=== PATIENT | female | born 1990 | race Caucasian/White ===

== ENCOUNTER 2023-09-10 12:57 | Emergency (ER) | payer SELFPAY ==
[2023-09-10 13:04] VITALS: BP 130/82; PULSE 100; RESP 16; TEMP 37.1; O2SAT 98; BMI 38.8
--- NOTE | 2023-09-10 13:07 | XR_ITS ---
[address] [address] Patient Name: LAVELLE TO MRN: [id number] date: 1990 Sex: F Assigned Patient Location: ER Current Patient Location: ER Accession/Order Number: [id number] Exam Date: 09/10/2023 13:25 Report Date: 09/10/2023 13:41 At the request of: TOBY MONTEIRO Procedure: XR foot LT min 3V STUDY: XR foot LT min 3V, [id number] HISTORY: Atraumatic pain for 3 months, distal plantar COMPARISON: None FINDINGS: No acute fracture, dislocation, or suspicious osseous lesion. No significant degenerative changes. Visualized soft tissues are within normal limits. Bipartite medial first MTP joint sesamoid. XR/XR foot LT min 3V IMPRESSION: Negative exam. No osseous etiology for plantar foot pain demonstrated. Electronically authenticated by: LEISA WATSON Date: 09/10/2023 13:41
--- NOTE | 2023-09-10 13:09 | ED_ITS ---
HPI - Extremity Injury (Lower) General Chief Complaint: Extremity Injury, Lower Stated Complaint: LOWER EXTREMITY PAIN Time Seen by Provider: 09/10/23 13:05 Source: patient Mode of arrival: Wheelchair History of Present Illness HPI Narrative: 33-year-old female presents for pain to her left foot that she has had for 3 months. There is no trauma. She points to the plantar aspect of her foot at the base of the first and second toes to indicate the area of most pain. It is worse when she walks on it and she is on her feet a lot at work. No symptoms in the right foot. She has no history of injury to that foot such as a fracture in the remote past. Related Data Previous Rx's Medication Instructions Recorded etodolac 400 mg tablet 400 mg PO Q12H PRN pain #20 tabs 09/10/23 Allergies Allergy/AdvReac Type Severity Reaction Status Date / Time cefixime [From Suprax] Allergy Severe Verified 09/10/23 13:08 Review of Systems ROS Narrative A ten point review of systems is negative except as noted above. Exam Narrative Exam Narrative: Nurses note and vital signs reviewed and patient is not hypoxic. General: The patient appears well and in no apparent distress. Patient is resting comfortably on cart. Skin: Warm, dry, no pallor noted. There is no rash noted. Head: Normocephalic, atraumatic Eye: Normal conjunctiva, no drainage Ears, Nose, Mouth, and Throat: oral mucosa is moist. Nares patent. Cardiovascular: Regular Rate and Rhythm Respiratory: Patient is in no distress, no accessory muscle use Back: non-tender GI: Soft and nontender Musculoskeletal: The left foot is examined. There is no bruise or rash or visible swelling. She has tenderness on the plantar aspect of her foot distally particularly at just proximal to the first and second toes. No skin lesions are noted. The ankle is nontender. Neurological: A&O, normal speech Psychiatric: Cooperative Constitutional Vital Signs, click to edit/add: Last Vital Signs Temp 98.8 F 09/10/23 13:04 Pulse 100 H 09/10/23 13:04 Resp 16 09/10/23 13:04 BP 130/82 09/10/23 13:04 Pulse Ox 98 09/10/23 13:04 O2 Del Method Room Air 09/10/23 13:04 Course Vital Signs Vital signs: Vital Signs Temperature 98.8 F 09/10/23 13:04 Pulse Rate 100 H 09/10/23 13:04 Respiratory Rate 16 09/10/23 13:04 Blood Pressure 130/82 09/10/23 13:04 Pulse Oximetry 98 09/10/23 13:04 Oxygen Delivery Method Room Air 09/10/23 13:04 Temperature 98.8 F 09/10/23 13:04 Pulse Rate 100 H 09/10/23 13:04 Respiratory Rate 16 09/10/23 13:04 Blood Pressure 130/82 09/10/23 13:04 Pulse Oximetry 98 09/10/23 13:04 Oxygen Delivery Method Room Air 09/10/23 13:04 MDM - Extremity Injury (Lower) MDM Narrative Medical decision making narrative: X-ray is negative. She is referred to podiatry and prescribed anti- inflammatory. Treatment diagnosis and follow-up were discussed with the patient. Differential Diagnosis Differential diagnosis: Likely other (Stress fracture, neuroma, arthralgia) Imaging Data Foot x-ray: Radiologist's impression: ITS Impressions Foot X-Ray 09/10/23 13:07 IMPRESSION: Negative exam. No osseous etiology for plantar foot pain demonstrated. Electronically authenticated by: LEISA WATSON Date: 09/10/2023 13:41 Discharge Plan Discharge Chief Complaint: Extremity Injury, Lower Clinical Impression: Foot pain, left Patient Disposition: Home, Self-Care Time of Disposition Decision: 13:51 Condition: Good Mode of Transportation: Private Vehicle Prescriptions / Home Meds: New etodolac 400 mg tablet 400 mg PO Q12H PRN (Reason: pain) Qty: 20 0RF Instructions: Metatarsalgia (DC) Additional Instructions: Follow-up with Dr. Fisher. Stand Alone Forms: Portal Instructions Referrals: Physician,Non-Staff, MD [Primary Care Provider] - 1 week
== END 2023-09-10 14:00 | disposition home or self-care (01) ==
PROVIDERS: Emergency Provider Emergency Medicine
DX: M79.672 Pain in left foot (principal)
CPT/HCPCS: 73630; 99283

== ENCOUNTER 2023-11-06 11:56 | Emergency (ER) | payer SELFPAY ==
[2023-11-06 12:09] VITALS: BP 127/88; PULSE 87; TEMP 36.9; O2SAT 99; BMI 39.3
[2023-11-06 13:11] LABS: Bilirubin Urine NEGATIVE (NEGATIVE); Blood Urine SMALL (NEGATIVE); Clarity Urine CLEAR (CLEAR); Color Urine LT. YELLOW (YELLOW); Glucose Urine UA NEGATIVE (NEGATIVE); Ketones Urine NEGATIVE (NEGATIVE); Leukocyte Esterase Urine LARGE (NEGATIVE); Nitrite Urine NEGATIVE (NEGATIVE); Protein Urine TRACE mg/dL (NEG/TRACE)
[2023-11-06 13:15] LABS: Urine Microscopic Indicated YES
--- NOTE | 2023-11-06 13:17 | ED.ABDPAIN1 ---
HPI - Abdominal Pain General Chief Complaint: Abdominal Pain Stated Complaint: ABDOMINAL PAIN Time Seen by Provider: 11/06/23 13:09 Source: patient Mode of arrival: walk-in History of Present Illness HPI narrative: Patient is a 33-year-old female who presents to the emergency department for a 1 week history of pain to the right flank and right side. She denies urinary symptoms, diarrhea, vomiting. She has had nausea. She reports pain in the right upper quadrant and right flank. She has had no upper respiratory symptoms, she denies previous abdominal surgeries. She is not concerned for . She drove herself to the emergency department. No medications taken prior to arrival. Related Data Home Medications ?Medication ?Instructions ?Recorded ?Confirmed No Known Home Medications 11/06/23 11/06/23 Previous Rx's ?Medication ?Instructions ?Recorded hydrocodone 5 mg-acetaminophen 325 1 tab PO Q6H PRN pain 3 days #12 11/06/23 mg tablet tabs hyoscyamine sulfate 0.125 mg 0.125 mg PO Q6H PRN abdominal pain 11/06/23 tablet (Levsin) #12 tabs ketorolac 10 mg tablet 10 mg PO TID PRN pain #10 tabs 11/06/23 ondansetron 4 mg disintegrating 4 mg PO Q6H PRN nausea and 11/06/23 tablet vomiting #12 tabs sulfamethoxazole 800 1 tab PO BID 7 days #14 tabs 11/06/23 mg-trimethoprim 160 mg tablet (Bactrim DS) Allergies Allergy/AdvReac Type Severity Reaction Status Date / Time cefixime [From Suprax] Allergy Severe Verified 09/10/23 13:08 Review of Systems ROS Constitutional Denies: fever or chills Ears, nose, mouth, and throat Denies: throat pain or nasal congestion Cardiovascular Denies: chest pain Respiratory Denies: shortness of breath or cough Gastrointestinal Reports: abdominal pain and nausea; Denies: vomiting or diarrhea Genitourinary Denies: painful urination Musculoskeletal Reports: back pain; Denies: neck pain Integumentary/Breast Denies: rash Neurological Denies: headache Hematologic/Lymphatic Denies: easy bruising or easy bleeding Exam Narrative Exam Narrative: Gen.: Awake, alert, in no distress Head: Normocephalic, atraumatic ENT: Moist mucous membranes Respiratory: No respiratory distress, lungs clear bilaterally Cardio: Regular rate and rhythm Gastrointestinal: Abdomen is soft, nondistended and nontender to palpation; No CVA tenderness Extremities: Moves extremities equally Psych: Normal mood and affect Neuro: No focal neuro deficit Skin: Warm, dry, intact Constitutional Vital Signs, click to edit/add: Last Vital Signs Temp 98.5 F 11/06/23 12:09 Pulse 76 11/06/23 14:51 Resp 18 11/06/23 14:51 BP 107/67 11/06/23 14:51 Pulse Ox 98 11/06/23 14:51 O2 Del Method Room Air 11/06/23 12:09 Course Vital Signs Vital signs: Vital Signs Temperature 98.5 F 11/06/23 12:09 Pulse Rate 87 11/06/23 12:09 Respiratory Rate 18 11/06/23 12:09 Blood Pressure 127/88 11/06/23 12:09 Pulse Oximetry 99 11/06/23 12:09 Oxygen Delivery Method Room Air 11/06/23 12:09 Temperature 98.5 F 11/06/23 12:09 Pulse Rate 76 11/06/23 14:51 Respiratory Rate 18 11/06/23 14:51 Blood Pressure 107/67 11/06/23 14:51 Pulse Oximetry 98 11/06/23 14:51 Oxygen Delivery Method Room Air 11/06/23 12:09 MDM - Abdominal Pain MDM Narrative Medical decision making narrative: Show normal white blood cell count, normal bilirubin and normal LFTs. Patient With evidence of UTI on urine specimen. test is negative. Patient sent for CT showing cholelithiasis with no evidence of cholecystitis, supported also by her lab studies. No other acute abnormalities noted on CT. Patient will be treated for biliary colic, UTI for home. Follow-up with general surgery and return to the ER if symptoms change or worsen. Medical Records Attestation: I reviewed the patient's medical records. Lab Data Attestation: I reviewed the patient's lab results. Labs: Lab Results 11/06/23 11/06/23 Range/Units 12:14 13:24 WBC 9.0 (4.0-11.0) 10^3/uL RBC 3.88 L (4.20-5.40) 10^6/uL Hgb 12.0 (12.0-16.0) g/dL Hct 37.1 (36.0-48.0) % MCV 95.6 (81.0-99.0) fL MCH 30.9 (26.7-34.0) pg MCHC 32.3 (29.9-35.2) g/dL RDW 12.5 (11.0-15.0) % Plt Count 256 (150-450) 10^3/uL MPV 9.5 (9.5-13.5) fL Neut % (Auto) 63.9 (43.0-75.0) % Lymph % (Auto) 27.6 (20.5-60.0) % [place] % (Auto) 6.9 (1.7-12.0) % Eos % (Auto) 1.3 (0.9-7.0) % Baso % (Auto) 0.2 (0.2-2.0) % Neut # (Auto) 5.7 (1.4-6.5) 10^3/uL Lymph # (Auto) 2.5 (1.2-3.8) 10^3/uL [place] # (Auto) 0.6 (0.3-0.8) 10^3/uL Eos # (Auto) 0.1 (0.0-0.7) 10^3/uL Baso # (Auto) 0.0 (0.0-0.1) 10^3/uL Abs Immat Gran (auto) 0.01 (0.00-0.03) 10^3/uL Imm/Tot Granulo (auto) 0.1 (0.0-0.5) % Sodium 140 (136-145) mmol/L Potassium 3.8 (3.5-5.1) mmol/L Chloride 103 (98-107) mmol/L Carbon Dioxide 28.3 (21.0-32.0) mmol/L Anion Gap 12.5 BUN 7.0 (7.0-18.0) mg/dL Creatinine 0.84 (0.55-1.02) mg/dL Est GFR ( Amer) >60 (>=60) Est GFR (Non-Af Amer) >60 (>=60) BUN/Creatinine Ratio 8.3 Glucose 96 (74-106) mg/dL Lactate 0.6 (0.4-2.0) mmol/L Calcium 9.6 (8.5-10.1) mg/dL Total Bilirubin 0.4 (0.2-1.0) mg/dL AST 20 (15-37) U/L ALT 46 (14-59) U/L Alkaline Phosphatase 62 (46-116) U/L Total Protein 7.6 (6.4-8.2) g/dL Albumin 3.5 (3.4-5.0) g/dL Globulin 4.1 g/dL Albumin/Globulin Ratio 0.9 Lipase 23.0 (16.0-77.0) U/L Urine Color Lt. yellow (YELLOW) Urine Clarity Clear (CLEAR) Urine pH 7.0 (5.0-9.0) Ur Specific [place] 1.010 (1.005-1.025) Urine Protein Trace (NEG/TRACE) mg/dL Urine Glucose (UA) Negative (NEGATIVE) mg/dL Urine Ketones Negative (NEGATIVE) mg/dL Urine Occult Blood Small A (NEGATIVE) Urine Nitrite Negative (NEGATIVE) Urine Bilirubin Negative (NEGATIVE) Urine Urobilinogen 1.0 (0.2-1.0) EU/dL Ur Leukocyte Esterase Large A (NEGATIVE) Urine RBC 5-10 A (0-2) #/HPF Urine WBC 50-75 A (NONE SEEN) #/HPF Ur Squamous Epith Cells Few A (NONE/RARE) #/LPF Urine Crystals None seen (None Seen) #/HPF Urine Bacteria Small A (NONE SEEN) #/HPF Urine Casts None seen (NONE SEEN) #/LPF Urine Mucus None seen (NONE SEEN) Ur Culture Indicated? Yes Urine HCG, Qual Negative (NEGATIVE) Imaging Data CT scan - abdomen: Attestation: I have reviewed the pertinent imaging results. Radiologist's impression: ITS Impressions Abdomen/Pelvis CT 11/06/23 13:25 IMPRESSION: 1. Cholelithiasis. No CT evidence of acute cholecystitis. 2. No urinary tract calculi or obstructive uropathy. 3. Unremarkable bowel and appendix. No acute or specific findings to account for patient's symptoms. Electronically authenticated by: EFRAÍN PERALTA Date: 11/06/2023 15:11 Discharge Plan Discharge Stand Alone Forms: Portal Instructions Chief Complaint: Abdominal Pain Clinical Impression: UTI (urinary tract infection), Abdominal pain, Cholelithiasis Patient Disposition: Home, Self-Care Time of Disposition Decision: 15:20 Condition: Good Prescriptions / Home Meds: New hydrocodone-acetaminophen 5-325 mg tablet 1 tab PO Q6H PRN (Reason: pain) 3 Days Qty: 12 0RF Rx Instructions: DX: R10.9 sulfamethoxazole-trimethoprim [Bactrim DS] 800-160 mg tablet 1 tab PO BID 7 Days Qty: 14 0RF ketorolac 10 mg tablet 10 mg PO TID PRN (Reason: pain) Qty: 10 0RF hyoscyamine sulfate [Levsin] 0.125 mg tablet 0.125 mg PO Q6H PRN (Reason: abdominal pain) Qty: 12 0RF ondansetron 4 mg tablet,disintegrating 4 mg PO Q6H PRN (Reason: nausea and vomiting) Qty: 12 0RF No Action No Known Home Medications Print Language: Tunisian Instructions: Gallstones (ED), Urinary Tract Infection in Women (ED) Referrals: Rolando Bolanos MD [Physician] - 1 week Physician,Non-Staff, [Primary Care Provider] - 1 week
[2023-11-06 13:23] LABS: Bacteria Urine SMALL #/HPF (NONE SEEN); Cast Seen? NONE SEEN #/LPF (NONE SEEN); Crystals Seen? None Seen #/HPF (None Seen); Mucus Urine NONE SEEN (NONE SEEN); Squamous Epithelial Cell Urine FEW #/LPF (NONE/RARE); Urine Culture Indicated YES; WBC Urine 50-75 #/HPF (NONE SEEN)
--- NOTE | 2023-11-06 13:25 | CT_ITS ---
[address] [address] Patient Name: LAVELLE TO MRN: [id number] date: 1990 Sex: F Assigned Patient Location: ER Current Patient Location: ER Accession/Order Number: [id number] Exam Date: 11/06/2023 14:25 Report Date: 11/06/2023 15:11 At the request of: SANFORD GALLO Procedure: CT abdomen pelvis w con EXAMINATION: CT abdomen pelvis w con HISTORY: Right flank pain COMPARISON: No relevant comparison available. TECHNIQUE: Axial, Coronal, and Sagittal images were obtained without and/or with IV contrast as indicated by examination type. Dose reduction techniques were achieved by using automated exposure control and/or adjustment of mA and/or kV according to patient size and/or use of iterative reconstruction technique. FINDINGS: LUNG BASES: No visible pulmonary or pleural disease. LIVER: No enlargement, atrophy, suspicious density, or significant focal lesion. BILIARY: Several stones within noninflamed gallbladder up to 1.8 cm in size. No abnormal duct dilation. PANCREAS: No lesion, fluid collection, or abnormal duct dilatation. SPLEEN: No enlargement or focal lesion. ADRENALS: No mass or enlargement. KIDNEYS: No mass, obstruction, or calcification. BOWEL/MESENTERY: No visible mass, obstruction, or bowel wall thickening. Normal appendix. AORTA/VASCULAR: No aneurysm or dissection. RETROPERITONEUM: No mass or adenopathy. LYMPH NODES: No adenopathy. URINARY BLADDER: No visible focal wall thickening, lesion, or calculus. PELVIC ORGANS: No visible mass. Pelvic organs appropriate for patient age. Bilateral fallopian tube clips. ABDOMINAL WALL: No mass or hernia. BONES: No bony lesion or fracture. OTHER: Negative. CT/CT abdomen pelvis w con IMPRESSION: 1. Cholelithiasis. No CT evidence of acute cholecystitis. 2. No urinary tract calculi or obstructive uropathy. 3. Unremarkable bowel and appendix. No acute or specific findings to account for patient's symptoms. Electronically authenticated by: EFRAÍN PERALTA Date: 11/06/2023 15:11
[2023-11-06] MEDS: 0.9 % SODIUM CHLORIDE 1,000 ML 1000 ML IV (13:28)
[2023-11-06] MEDS: HYOSCYAMINE SULFATE 0.125 MG TAB.SUBL SL (13:29)
[2023-11-06] MEDS: KETOROLAC TROMETHAMINE 30 MG/ML VIAL IVP (13:29)
[2023-11-06] MEDS: ONDANSETRON PF 4 MG/2 ML VIAL IV (13:30)
[2023-11-06 13:37] LABS: Basophils Percent Auto 0.2 % (0.2-2.0); Eosinophils Absolute Auto 0.1 10^3/uL (0.0-0.7); Eosinophils Percent Auto 1.3 % (0.9-7.0); Hematocrit 37.1 % (36.0-48.0); Immature Granulocytes Abs Auto 0.01 10^3/uL (0.00-0.03); Immature Granulocytes Pct Auto 0.1 % (0.0-0.5); Lymphocytes Absolute Auto 2.5 10^3/uL (1.2-3.8); Lymphocytes Percent Auto 27.6 % (20.5-60.0); Mean Corpuscular HGB Conc 32.3 g/dL (29.9-35.2); Mean Corpuscular Hemoglobin 30.9 pg (26.7-34.0); Mean Corpuscular Volume 95.6 fL (81.0-99.0); Mean Platelet Volume 9.5 fL (9.5-13.5); Monocytes Absolute Auto 0.6 10^3/uL (0.3-0.8); Monocytes Percent Auto 6.9 % (1.7-12.0); Neutrophils Absolute Auto 5.7 10^3/uL (1.4-6.5); Neutrophils Percent Auto 63.9 % (43.0-75.0); Platelet Count 256 10^3/uL (150-450); Red Blood Count 3.88 10^6/uL (4.20-5.40); Red Cell Distribution Width 12.5 % (11.0-15.0)
[2023-11-06 13:48] LABS: Alanine Aminotransferase 46 U/L (14-59); Albumin Globulin Ratio 0.9; Albumin Level 3.5 g/dL (3.4-5.0); Alkaline Phosphatase 62 U/L (46-116); Anion Gap 12.5; Aspartate Amino Transferase 20 U/L (15-37); BUN Creatinine Ratio 8.3; Bilirubin Total 0.4 mg/dL (0.2-1.0); Calcium 9.6 mg/dL (8.5-10.1); Carbon Dioxide 28.3 mmol/L (21.0-32.0); Chloride 103 mmol/L (98-107); Estimated GFR (African America >60 (>=60); Estimated GFR (Non-African Ame >60 (>=60); Globulin 4.1 g/dL; Glucose 96 mg/dL (74-106); Potassium 3.8 mmol/L (3.5-5.1); Sodium 140 mmol/L (136-145); Total Protein 7.6 g/dL (6.4-8.2)
[2023-11-06 13:51] LABS: Lactate/Lactic Acid 0.6 mmol/L (0.4-2.0)
[2023-11-06 14:08] LABS: HCG Qualitative Urine* NEGATIVE (NEGATIVE)
[2023-11-06 14:16] VITALS: BP 126/77; PULSE 82; O2SAT 98
[2023-11-06 14:51] VITALS: BP 107/67; PULSE 76; O2SAT 98
--- NOTE | 2023-11-08 15:30 | PC.NURSE ---
11/08/23 pt urine c+s reviewed by dr castellon, order to stop Bactrim start Macrobid 100 mg po bid times 5 days. Pt called and notified, and called to [facility] in [place] per pt request. pt denies any further needs questions or concerns at this time. Marco A Harvey RN
== END 2023-11-06 15:31 | disposition home or self-care (01) ==
PROVIDERS: Physician Assistant; Emergency Provider Emergency Medicine Emergency Medical Services
DX: N39.0 Urinary tract infection, site not specified (principal); R10.9 Unspecified abdominal pain; K80.20 Calculus of gallbladder without cholecystitis without obstruction
CPT/HCPCS: 36415; 74177; 80053; 81001; 83605; 83690; 84703; 85025; 87086; 87150; 87186; 96374; 96375; 99285; Q9967

== ENCOUNTER 2024-07-18 10:36 | Observation (INO) | payer SELFPAY ==
[2024-07-18 10:42] VITALS: BP 136/93; PULSE 93; TEMP 36.9; O2SAT 100; BMI 42.9
--- OUTSIDE RECORDS SUMMARY | 2024-07-18 10:43 | XMS_ITS | CCD ---
Author Organization [facility] Care Team Providers Care [employer] Sales Consultant Name Role Phone GEMMA, RICHELLE Unavailable Unavailable GEMMA, RICHELLE Unavailable Unavailable UNKNOWN, PROVIDER Unavailable Unavailable GEMMA, RICHELLE Unavailable Unavailable PHYSICIAN, DEFAULT Admitting Unavailable PHYSICIAN, DEFAULT Attending Unavailable Unavailable Primary Care Provider UnavailFRANCOIS Ivan Attending Unavailable FRANCOIS KING E Attending Unavailable CHUCKIE ALVARENGA Attending Unavailable EDWARD HAN Referring Unavailable NO PCP, NO PCP Primary Care Unavailable EDWARD HAN Admitting Unavailable EDWARD HAN Attending Unavailable NO PCP, NO PCP Primary Care Unavailable CANDI ROSS Attending Unavailable NO PCP, NO PCP Primary Care Unavailable EDWARD HNA Attending Unavailable NO PCP, NO PCP Primary Care Unavailable NATALIO BARRERA Attending Unavailable NO PCP, NO PCP Primary Care Unavailable Allergies Allergy Classification Reported Allergen(s) Allergy Type Date of Onset Reaction(s) Facility Cephalosporins (antibiotic) (1 source) Cefixime Drug Allergy 5 Hives, Swelling [facility] (2 sources) Cefixime; Translations: [CEFIXIME] Drug Allergy 9 [facility] Medications Completed/Discontinued Medications Medication Drug Class(es) Dates Sig (Normalized) Sig (Original) cephalexin 500 mg oral capsule (2 sources) Cephalosporin Antibacterial Start: 11-11-2020 End: 11-21-2020 cephALEXin (KEFLEX) capsule 500 mg ferrous sulfate 325 mg oral tablet (1 source) End: 11-11-2020 take 1 tablet by mouth once daily at breakfast ferrous sulfate 325 (65 Fe) MG tablet Take 325 mg by mouth daily (with breakfast) 0 11/11/2020 Discontinued (LIST CLEANUP) ibuprofen 800 mg oral tablet (1 source) Nonsteroidal Anti-inflammatory Drug Start: 11-11-2020 End: 11-11-2020 ibuprofen (ADVIL;MOTRIN) tablet 800 mg Vit-Fe Fumarate-FA ( VITAMIN PO) (1 source) End: 11-11-2020 take 1 tablet by mouth once daily Vit-Fe Fumarate-FA ( VITAMIN PO) Take 1 tablet by mouth daily 0 11/11/2020 Discontinued (LIST CLEANUP) sulfamethoxazole 800 mg / trimethoprim 160 mg oral tablet (2 sources) Dihydrofolate Reductase Inhibitor Antibacterial, Sulfonamide Antimicrobial Start: 11-11-2020 End: 11-11-2020 sulfamethoxazole- trimethoprim (BACTRIM DS;SEPTRA DS) 800-160 MG per tablet 1 tablet Start: 11-11-2020 End: 11-21-2020 take 1 tablet by mouth twice daily sulfamethoxazole-trimethoprim (BACTRIM D S) 800-160 MG per tablet Take 1 tablet by mouth 2 times daily for 10 days 20 tablet 0 11/11/2020 11/21/2020 Active Problems Active Problems Problem Classification Problem Date Documented Date Episodic/Chronic Biliary tract disease (3 sources) Calculus of gallbladder with chronic cholecystitis without obstruction; Translations: [Calculus of bile duct with chronic cholecystitis without obstruction] Onset: 11-19-2023 Episodic Other nutritional; endocrine; and metabolic disorders (1 source) Obesity, unspecified; Translations: [Obesity, unspecified] Onset: 11-19-2023 Chronic Other and delivery including normal (1 source) Delivery normal; Translations: [Encounter for full-term uncomplicated delivery] 03-15-2016 Episodic Residual codes; unclassified (1 source) Acquired absence of other specified parts of digestive tract; Translations: [Acquired absence of other specified parts of digestive tract] Onset: 12-16-2023 Episodic Residual codes; unclassified (1 source) Tobacco use; Translations: [Tobacco use] Onset: 11-19-2023 Episodic Skin and subcutaneous tissue infections (2 sources) Cellulitis and abscess of lower limb; Translations: [Cellulitis of unspecified part of limb] Episodic Unclassified (1 source) cholelithiasis, chronic cholecystitis Onset: 12-02-2023 Unclassified (1 source) POST-OP VISIT Onset: 12-16-2023 Unclassified (1 source) Cholelithiasis Onset: 11-19-2023 Past or Other Problems Problem Classification Problem Date Documented Da te Episodic/Chronic Abdominal pain (1 source) Abdominal pain; Translations: [Unspecified abdominal pain] Onset: 11-03-2018 11-05-2018 Episodic Polyhydramnios and other problems of amniotic cavity (1 source) Newton rupture of membranes onset of labor within 24 hours; Translations: [Full-term premature rupture of membranes, onset of labor within 24 hours of rupture] Onset: 11-18-2018 11-18-2018 Episodic Results Test Name Value Interpretation Reference Range Facility Surgical Pathologyon 024 Surgical Pathology Normal [facility] Comment on above: Result Comment: [facility] [address] [place] [address] Surgical Pathology Consultation Patient Name:SUN TO:1990 (Age: 33)Gender:FTaken:4Reported:4Physician(s):Edward Han D.O. ([phone])Copy To: Rec. #:[id number]: #[id number] Final Pathologic Diagnosis Gallbladder, cholecystectomy: Chronic cholecystitis and cholelithiasis. Report Electronically Signed Out cjb/4Cdavid Edouard MD Interpretation performed at [facility], [address] [place] [address], License number: [id number]. Clinical History Cholelithiasis, chronic cholecystitis. Gross Description Received in formalin labeled GARY TO is an intact gallbladder, 8.1 x 3.5 x 2.2 cm. The cystic duct is marked with a clamp, which is removed and the resection margin is shaved. The serosa is green-blair smooth and glistening and the opposing hepatic bed is green-blair roughened and cauterized. The gallbladder is opened to reveal abundant viscous green bile and 2 semifriable yellow multifaceted calculi, 1.6 and 1.7 cm in greatest dimension. The gallbladder mucosa is green and velvety with abundant yellow streaking. Rrts sections are submitted in a single cassette to include the shaved cystic duct, a arborist representative section of the gallbladder neck body and fundus. (1,ss,[id number], m6) TB tgb/4AO Specimen(s) Received Gallbladder Fee Codes(s): 1; 45728 [id number] 06-24-2021 SARS-CoV-2 (COVID-19) RNA TINO+probe Ql (Unsp spec) [facility] Comment on above: Result Comment: Rapid NAAT: The specimen is POSITIVE for SARS-Cov-2, the novel coronavirus associated with COVID-19. This test has been authorized by the FDA under an Emergency Use Authorization (EUA) for use by authorized laboratories. The ID NOW COVID-19 assay is designed to detect the virus that causes COVID-19 in patients with signs and symptoms of infection who are suspected of COVID-19. An individual without symptoms of COVID-19 and who is not shedding SARS-CoV-2 virus would expect to have a negative (not detected) result in this assay. Fact sheet for Healthcare Providers: https://www.fda.gov/media/486941/download Fact sheet for Patients: https://www.fda.gov/media/092619/download Methodology: Isothermal Nucleic Acid Amplification Results reported to the appropriate Health Department Performed By: #### C OVRB #### [facility] [address] [place] [address] [place] [address] Hydro Pneumatic Tester: Rey Clark MD SURGICALon 03-02-2021 SURGICAL [facility] [id number] Assoc. Page 1 of 1 [address] [place] [address] PROC: 03/02/2021 [facility] RECV: 03/06/[address] RPTD: 03/07/2021 [place] [address] LOC: [facility] ACCT: [id number] SEX: F : 1990 AGE: 30 Y PATHOLOGY REPORT ATTN: JUAN SLOAN REQ: JUAN SLOAN Clinical Information: AUB FINAL DIAGNOSIS: Endometrium, curettings: Benign interval phase endometrium. Benign endocervix and transition zone. Specimen: ENDOMETRIAL CURETTINGS Gross Examination: The container is labeled Sun To, endometrial curettings. Received in formalin are bits of green tissue aggregating to 1.4 x 1 x 0.2 cm. 1 ns. SIO/DKR:[id number] Microscopic Examination: Sections show numerous fragments of benign endometrium containing interval phase glands. There is no evidence of hyperplasia, atypia, or malignancy. Also present are multiple fragments of benign transition zone with squamous metaplasia. [id number] OSMAN DUENAS M.D., F.C.A.P [facility]/ [facility] Printed on: 03/07/2021 [address] [place], [place] [address] Original print date: 03/07/2021 Normal [facility] NOVEL CORONAVIRUS NASOPHARYN GEAL - [facility] SPECIMEN ONLYon 02-27-2021 SARS-CoV-2 (COVID-19) RNA TINO+probe Ql (Unsp spec) Not detected Normal NOT DETECTED [facility] Comment on above: Order Comment: This test was performed using real time PCR for the qualitative detection of SARS-CoV-2 nucleic acid. The test has been reviewed by the FDA and given emergency use authorization. This test was developed and its performance characteristics determined by The Clinical Microbiology Laboratory at [facility]. This test is used for clinical purposes. It should not be regarded as investigational or for research. Result Comment: [facility] Negative results do not preclude SARS-CoV-2 infection and should not be used as the sole basis for treatment or other patient management decisions. Optimum specimen types and timing for peak viral levels during infections caused by SARS-CoV-2 has not been determined. The possibility of a false negative result should especially be considered if the patient's recent exposures or clinical presentation suggest that SARS-CoV-2 infection is probable, and diagnostic tests for other causes of illness (e.g., other respiratory illness) are negative. Collection of a new specimen and re-testing may be necessary if the patient is critically ill or clinically deteriorating. Performed By: #### L [id number] #### U [facility] (DEFAULT) [address] [place] [address] CT BRAIN WOon 09-20-[address] BRAIN WITHOUT CONTRAST, 09/20/2019 6:39 AM EST INDICATION: Headache. COMPARISON: 12/19/2016. TECHNIQUE: CT images of the brain from skull base to vertex, including portions of the face and sinuses, were obtained without contrast. Supplemental 2D reformatted images were generated and reviewed as needed. Dose reduction techniques were achieved by using automated exposure control and/or adjustment of mA and/or kV according to patient size and/or use of iterative reconstruction technique. ADDITIONAL TECHNIQUE: None. FINDINGS: CALVARIUM/SKULL BASE: No evidence of fracture or destructive lesion. Mastoids and middle ears grossly clear. PARANASAL SINUSES: Imaged portions clear. BRAIN: No evidence of acute abnormality. No significant white matter disease or acute ischemia. No mass effect, mass lesion, acute hemorrhage, or hydrocephalus. IMPRESSION: 1. No CT evidence of acute intracranial abnormality. 2. Although no evidence of acute infarction, mass, or hemorrhage is seen, CT is relatively insensitive for the detection of hypoxia/ischemia within the first 24-48 hours, and an MRI scan may be indicated. Report electronically signed by: Dr. Dimitry Maldonado Normal [facility] UA w reflex C&Son 02-22-2019 Reflex Culture? URINE CULTURE NOT INDICATED Normal [facility] Comment on above: Performed By: #### U A w reflex C&S #### [facility] [address] [place] [address] Crystals LM Nom (Urine sed) NONE SEEN Normal NONE SEEN [facility] Comment on above: Performed By: #### U A w reflex C&S #### [facility] [address] [place] [address] Bacteria LM.HPF (Urine sed) [#/Area] Negative Normal NEGATIVE [facility] Comment on above: Performed By: #### U A w reflex C&S #### [facility] [address] [place] [address] Mucus Ql (Urine sed) Negative Normal NEGATIVE [facility] Comment on above: Performed By: #### U A w reflex C&S #### [facility] [address] [place] [address] Casts LM.LPF (Urine sed) [#/Area] NONE SEEN Normal NONE SEEN [facility] Comment on above: Performed By: #### U A w reflex C&S #### [facility] [address] [place] [address] Epithelial cells LM.HPF (Urine sed) [#/Area] FEW Normal NEGATIVE [facility] Comment on above: Performed By: #### U A w reflex C&S #### [facility] [address] [place] [address] RBC (Bld) [#/Vol] NONE SEEN Normal NONE SEEN [facility] Comment on above: Performed By: #### U A w reflex C&S #### [facility] [address] [place] [address] WBC (Bld) [#/Vol] NONE SEEN Normal NONE SEEN [facility] Comment on above: Performed By: #### U A w reflex C&S #### [facility] [address] [place] [address] Leukocyte esterase Test strip Ql (U) Negative Normal NEGATIVE [facility] Comment on above: Performed By: #### U A w reflex C&S #### [facility] [address] [place] [address] Nitrite Ql (U) Negative Normal NEGATIVE [facility] Comment on above: Performed By: #### U A w reflex C&S #### [facility] [address] [place] [address] Urobilinogen, Dipstick 0.2 Normal 0.2 - 1.0 [facility] Comment on above: Performed By: #### U A w reflex C&S #### [facility] [address] [place] [address] Protein, Qual Negative Normal NEGATIVE [facility] Comment on above: Performed By: #### U A w reflex C&S #### [facility] [address] [place] [address] pH (U) 6.5 [pH] Normal 5.0 - 9.0 [facility] Comment on above: Performed By: #### U A w reflex C&S #### [address] [address] Blood, Dipstick Negative Normal NEGATIVE [facility] Comment on above: Performed By: #### U A w reflex C&S #### [address] [address] Specific gravity (U) [Rel density] 1.010 Normal 1.005 - 1.030 [facility] Comment on above: Performed By: #### U A w reflex C&S #### [address] [address] Ketone, Dipstick Negative Normal NEGATIVE [facility] Comment on above: Performed By: #### U A w reflex C&S #### [address] [address] Bilirubin, Dipstick Negative Normal NEGATIVE [facility] Comment on above: Performed By: #### U A w reflex C&S #### [address] [address] Glucose, Dipstick Negative Normal NEGATIVE [facility] Comment on above: Performed By: #### U A w reflex C&S #### [address] [address] Character (U) CLEAR Normal CLEAR [facility] Comment on above: Performed By: #### U A w reflex C&S #### [address] [place] [address] Color (U) YELLOW Normal [facility] Comment on above: Performed By: #### U A w reflex C&S #### [facility] [address] [place] [address] Age at specimen collection = Normal [facility] Comment on above: Performed By: #### U A w reflex C&S #### [facility] [address] [place] [address] XR ABD AP/ERECT W PA CHESTon 02-22-2019 XR ABD AP/ERECT W PA CHEST ACUTE ABDOMINAL SERIES, 6 VIEWS: COMPARISON: 02/11/2019. HISTORY: Left-sided pain. FINDINGS: Retained stool suggests constipation. Otherwise, the bowel gas pattern appears within normal limits. There are no suspicious appearing calcifications. No free peritoneal air is seen. Tubal ligation clips are seen in the pelvis bilaterally. Otherwise, the osseous and surrounding soft tissue structures appear within normal limits. A single PA film of the chest appears within normal limits. IMPRESSION: 1. Moderate constipation. 2. Otherwise unremarkable abdomen. Report electronically signed by: Dr. Rey Barton [facility] CBC W Auto Differentialon Abs Neut # 8.0 10 X 3/mm High 1.8 - 7.7 [facility] Comment on above: Performed By: #### C BC Auto Diff #### [facility] [address] [place] [address] Basophils/100 WBC (Bld) 0 % Normal 0 - 1 [facility] Comment on above: Performed By: #### C BC Auto Diff #### [facility] [address] [place] [address] Eosinophils (Bld) [#/Vol] 0.3 10 X 3/mm Normal 0.0 - 0.5 [facility] Comment on above: Performed By: #### C BC Auto Diff #### [facility] [address] [place] [address] Eosinophils/100 WBC (Bld) 3 % Normal 0 - 5 [facility] Comment on above: Performed By: #### C BC Auto Diff #### [address] [place] [address] Erythrocyte distribution width (RBC) [Ratio] 14.3 % Normal 11.5 - 14.5 [facility] Comment on above: Performed By: #### C BC Auto Diff #### [address] [place] [address] Hematocrit (Bld) [Volume fraction] 34.6 % Low 36.0 - 47.0 [facility] Comment on above: Performed By: #### C BC Auto Diff #### [address] [address] Hemoglobin (Bld) [Mass/Vol] 11.2 g/dL Low 12.0 - 16.0 [facility] Comment on above: Performed By: #### C BC Auto Diff #### [address] [place] [address] Lymphocytes (Bld) [#/Vol] 3.6 10 X 3/mm Normal 1.0 - 4.0 [facility] Comment on above: Performed By: #### C BC Auto Diff #### [address] [place] [address] Lymphocytes/100 WBC (Bld) 29 % Normal 20 - 40 [facility] Comment on above: Performed By: #### C BC Auto Diff #### [address] [place] [address] MCH (RBC) [Entitic mass] 28.1 pg Normal 27.0 - 35.0 [facility] Comment on above: Performed By: #### C BC Auto Diff #### [address] [place] [address] MCHC (RBC) [Mass/Vol] 32.4 g/dL Normal 32.0 - 36.0 [facility] Comment on above: Performed By: #### C BC Auto Diff #### [address] [address] MCV (RBC) [Entitic vol] 86.6 fL Normal 80.0 - 100.0 [facility] Comment on above: Performed By: #### C BC Auto Diff #### [address] [address] Monocytes/100 WBC (Bld) 5 % Normal 1 - 15 [facility] Comment on above: Performed By: #### C BC Auto Diff #### [address] [address] Neutrophils/100 WBC (Bld) 63 % Normal 50 - 70 [facility] Comment on above: Performed By: #### C BC Auto Diff #### [address] [address] Platelet mean volume (Bld) [Entitic vol] 7.6 fL Normal 7.5 - 11.5 [facility] Comment on above: Performed By: #### C BC Auto Diff #### [address] [address] Platelets (Bld) [#/Vol] 358 uLx10 Normal 150 - 450 [facility] Comment on above: Performed By: #### C BC Auto Diff #### [address] [address] RBC (Bld) [#/Vol] 4.00 10 X 6/mm Low 4.20 - 5.40 [facility] Comment on above: Performed By: #### C BC Auto Diff #### [address] [place] [address] WBC (Bld) [#/Vol] 12.6 10 X 3/mm High 3.7 - 11.0 [facility] Comment on above: Performed By: #### C BC Auto Diff #### [address] [place], [place] [address] SURGICALon 02-17-2019 SURGICAL [facility] [id number] Assoc. Page 1 of 1 [address] [place] [address] PROC: 02/17/[address] [facility] RECV: 02/18/[address] RPTD: 02/19/2019 [place] [address] LOC: [facility] ACCT: SEX: F [id number] AGE: 28 Y : 1990 PATHOLOGY REPORT ATTN: REQ: JUANDUY SLOAN Clinical Information: MULTIPARITY, DESIRES NEXPLANON REMOVAL, DESIRES VOLUNTARY STERILIZATION FINAL DIAGNOSIS: Foreign body, removal: Gross description only. Specimen: FOREIGN BODY, UPPER ARM Gross Examination: The container is labeled Sun To, intradermal contraception device. Received in formalin is a white synthetic tubular structure measuring 4.2 cm in length x about 2 cm in diameter. No soft tissue. The specimen is for gross description only. EKM/DKR:[id number] DAWSON JESUS M.D., F.C.A.P. [facility]/ [facility] Printed on: 02/19/[address] [place] [id number] Original print date: 02/19/2019 [facility] hCG, Qualitative-Serumon Age at specimen collection = Normal [facility] Comment on above: Performed By: #### H CG,QUAL SERUM #### [address] [place] [address] Performed By: #### C BC Auto Diff #### [address] [place] [address] hCG, Qualitative-Serum Negative Normal NEGATIVE [facility] Comment on above: Performed By: #### H CG,QUAL SERUM #### [facility] [address] [place] [address] Internal Control ACCEPTABLE Normal [facility] Comment on above: Performed By: #### H CG,QUAL SERUM #### [facility] [address] [place] [address] Streptococcus Group A Cultur e-Pharyngeal Swabon 02-13-2019 Streptococcus Group A Culture-Pharyngeal Swab Negative Normal NEGATIVE [facility] Comment on above: Result Comment: A po sitive result indicates the specimen is presumptively positive for Group A Beta Strep by bacitracin method. Performed By: #### S TRP SCR, GRP A #### [address] [place] [address] Group A Strepon 02-11-2019 Internal Control ACCEPTABLE Normal [facility] Comment on above: Performed By: #### R APID STREP SCR #### [address] [address] S. pyogenes Ag IA Ql (Unsp spec) Negative Normal NEGATIVE [facility] Comment on above: Performed By: #### R APID STREP SCR #### [address] [address] XR CHEST P/L (2 view)on 01-25 XR CHEST P/L (2 view) PROCEDURE: XR CHEST P/L (2 VIEW) REASON FOR STUDY/CLINICAL HISTORY: Cough. COMPARISON STUDY: None available at time of dictation. TECHNIQUE: Frontal and lateral view(s) of the chest presented for interpretation. FINDINGS: Bronchial thickening centrally. There is atelectasis at the right medial lung base. Left base and lingular atelectatic changes are also suggested. Normal cardiomediastinal silhouette. No focal consolidation, edema, or effusion.No pneumothorax. No acute appearing focal significant bony abnormality. IMPRESSION: Bibasilar and lingular atelectasis and mild central bronchial thickening with no other acute process. Report electronically signed by: Dr. Deion Sigala [facility] Streptococcus Group A Cultur e-Pharyngeal Swabon 02-10-2019 Age at specimen collection = Normal [facility] Comment on above: Performed By: #### S TRP SCR, GRP A #### [facility] [address] [place] [address] Performed By: #### R APID STREP SCR #### [facility] [address] [place] [address] RAPID FLUon 11-01-2018 Flu B Negative Normal NEGATIVE [facility] Comment on above: Result Comment: A po sitive result indicates the presence of Influenza A/B antigen. A negative result should be interpreted as presumptively negative for the presence of Influenza A/B antigen. Performed By: #### F IRIS A/B MOLECUL #### [facility] [address] [place] [address] Internal Control ACCEPTABLE Normal [facility] Comment on above: Performed By: #### F IRIS A/B MOLECUL #### [facility] [address] [place] [address] Flu A Negative Normal NEGATIVE [facility] Comment on above: Performed By: #### F IRIS A/B MOLECUL #### [facility] [address] [place] [address] Age at specimen collection = Normal [facility] Comment on above: Performed By: #### F IRIS A/B MOLECUL #### [address] [place] [address] Vital Signs Date Time Vital Sign Value Performing Clinician Russ quiroz 11-11-2020 21:27-0400 Diastolic blood pressure 67 mm[Hg] Chuckie Alvarenga MD Work Phone: [employer] Phone: 11-11-2020 21:27-0400 Heart rate 91 /min Chuckie Alvarenga MD Work Phone: [employer] Work Phone: 11-11-2020 21:27-0400 Respiratory rate 16 /min Chuckie Alvarenga MD Work Phone: [employer] Work Phone: 11-11-2020 21:27-0400 SaO2% (BldA) [Mass fraction] 98 % Chuckie Alvarenga MD Work Phone: [employer] Work Phone: 11-11-2020 21:27-0400 Systolic blood pressure 129 mm[Hg] Chuckie Alvarenga MD Work Phone: [employer] Work Phone: 11-11-2020 20:38-0400 Body mass index (BMI) [Ratio] 38.11 kg/m2 Chuckie Alvarenga MD Work Phone: [employer] Work Phone: 11-11-2020 20:38-0400 Body temperature 99.39 [degF] Chuckie Alvarenga MD Work Phone: [employer] Work Phone: 11-11-2020 20:38-0400 Body weight 103.87 kg Chuckie Alvarenga MD Work Phone: [employer] Work Phone: Encounters Encounter Date Encounter Type Care Provider Facility Start: 12-16-2023 End: 12-16-2023 ambulatory NATALIO BARRERA [facility] Start: 12-02-2023 End: 12-02-2023 Evaluation and management of inpatient CANDI ROSS [facility] Start: 12-02-2023 End: 12-02-2023 Evaluation and management of inpatient EDWARD YOCASTAJEFFERYMarco A [facility] Start: 11-27-2023 End: 11-27-2023 ambulatory [facility] Start: 11-19-2023 End: 11-19-2023 ambulatory VOTAW Mike [facility] Start: 08-07-2021 End: 08-07-2021 Emergency department patient [facility] Start: 06-24-2021 End: 06-24-2021 Emergency department patient visit FRANCOIS Vaz [facility] Start: 11-11-2020 End: 11-11-2020 [facility] [facility] Start: 11-11-2020 End: 11-11-2020 Emergency department patient visit Chuckie Alvarenga MD Work Phone: [facility] ED Comment on above: Cellulitis and absce ss of leg (Primary Dx); Cellulitis, abdominal wall Start: 11-25-2018 End: 11-26-2018 Patient encounter procedure DEFAULT PHYSICIAN Facility:[facility] Start: 02-11-2017 End: 02-12-2017 Ambulatory [facility] [place] Plan of Treatment Date Care Activity Detail Author Start: 03-15-2026 DTaP/Tdap/Td vaccine (2 - Td) DTaP/Tdap/Td vaccine (2 - Td) [employer] Phone: Start: 03-28-2021 Influenza vaccination Flu vacc ine (Season Ended) [employer] Phone: Start: 2013 Screening for malign ant neoplasm of cervix Cervical cancer screen [employer] Phone: Start: 2008 COVID-19 Vaccine (1) COVID-19 Vaccin e (1) [employer] Phone: Start: 2007 HIV screening HIV screen [facility] Work Phone: Start: 1998 Pneumococcal 0-64 ye ars Vaccine (1 of 1 - PPSV23) Pneumococcal 0-64 years Vaccine (1 of 1 - PPSV23) [employer] Phone: Start: 1993 Varicella vaccine (1 of 2 - 2-dose childhood series) Varicella vaccine (1 of 2 - 2-dose childhood series) [employer] Work Phone: Start: 1992 Hepatitis C screening Hepatitis C sc lindseyn [employer] Work Phone: Immunizations Immunization Date Immunization Notes Care Provider Fa rita 03-15-2016 tetanus toxoid, redu rodri diphtheria toxoid, and acellular pertussis vaccine, adsorbed Chuckie Jordan CALDERON Work Phone: [employer] Phone: Payers Date Payer Category Payer Unknown [id number] 1990 Unknown [id number] [id number] 1990 Unknown [id number] [id number] 1992 Unknown [id number] 2.16.8 [id number] 1992 Unknown [id number] [id number] [id number] 1992 Unknown [id number] 2.16.8 [id number] 1992 Unknown [id number] [id number] [id number] Medicaid [id number] Unknown Social History Date Type Detail Facility Start: 11-11-2020 Tobacco smoking stat 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 Please follow up with your primary care physician by calling today, or as soon as possible, for the first available appointment. If you do not have a primary care physician, please contact a physician or clinic listed below today to establish care. Please return to the emergency department IMMEDIATELY if you develop uncontrolled fevers, uncontrolled vomiting, change in symptoms, worsening of symptoms, or ANY other concerns. The following attachments cannot be sent through Care Everywhere.Cellulitis (Polish)Abscess: Skin (Polish)documented in this encounter [employer] Phone: Evaluation note Note Date & Type Note Facility Evaluation note Diagnosis Cellulitis and abscess of leg- Primary Cellulitis and abscess of leg, except foot Cellulitis, abdominal wall Cellulitis and abscess of trunk documented in this encounter [employer] Phone: Summary Purpose Family History No Family History Records FoundNo Family History Records FoundNo Family History Records FoundNo Family History Records FoundNo Family History Records FoundNo Family History Records FoundNo Family History Records FoundNo Family History Records FoundNo Family History Records Found Advance Directives No Advanced Directives Records FoundDocuments on File Type Date Recorded Patient Rrts Expl anation 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 Latest Code Status on File Code Status Date Activated Date Inactivated Comments Full Code 11/18/2018 4:11 AM 11/18/2018 7:55 AM Full Code 03/13/2016 11:53 PM 03/15/2016 4:20 PM Full Code 03/13/2016 9:44 AM 03/13/2016 11:53 PM Additional Source Comments INFORMATION SOURCE (unrecogn ized section and content) DATE CREATED AUTHOR 01/20/2018 [facility] DATE CREATED AUTHOR AUTHOR'S ORGANIZ ATION 12/02/2018 [facility] DATE CREATED AUTHOR AUTHOR'S ORGANIZ ATION 02/19/2019 [facility] DATE CREATED AUTHOR AUTHOR'S ORGANIZ ATION 10/08/2019 [facility] DATE CREATED AUTHOR AUTHOR'S ORGANIZ ATION 03/02/2021 [facility] DATE CREATED AUTHOR AUTHOR'S ORGANIZ ATION 03/08/2021 [facility] DATE CREATED AUTHOR AUTHOR'S ORGANIZ ATION 08/08/2021 Doris Rangel [facility] DATE CREATED AUTHOR AUTHOR'S ORGANIZ ATION 12/11/2023 [facility] DATE CREATED AUTHOR AUTHOR'S ORGANIZ ATION 12/19/2023 [facility] Reason for Visit (unrecogniz ed section and content) Reason Comments Leg Pain boil on left inner l eg Ordered Prescriptions (unrec ognized section and content) Prescription Sig Dispensed Refills Start Date End Da te sulfamethoxazole-trimeth oprim (BACTRIM DS) 800-160 MG per tablet Take 1 tablet by mouth 2 times daily for 10 days 20 tablet 0 11/11/2020 11/21/2020 cephALEXin (KEFLEX) 500 MG capsule Take 1 capsule by mouth 4 times daily for 10 days 40 capsule 0 11/11/2020 11/21/2020 FOR RECORDS PERTAINING TO PATIENTS WHO ARE OR HAVE BEEN ENROLLED IN A CHEMICAL DEPENDENCY/SUBSTANCEABUSE PROGRAM, SOME INFORMATION MAY BE OMITTED. This clinical summary was aggregated from multiple sources. Caution should be exercised in using it in the provision of clinical care. This summary normalizes information from multiple sources, and as a consequence, information in this document may materially change the coding, format and clinical context of patient data. In addition, data may be omitted in some cases. CLINICAL DECISIONS SHOULD BE BASED ON THE PRIMARY CLINICAL RECORDS. [employer] [facility]. provides no warranty or guarantee of the accuracy or completeness of information in this document.
--- NOTE | 2024-07-18 11:15 | ED_ITS ---
HPI - Ear Problem General Chief complaint: Ear Stated complaint: L EAR PAIN Time Seen by Provider: 07/18/24 10:55 Source: patient Mode of arrival: walk-in Limitations: no limitations History of Present Illness HPI Narrative: The patient presented to us with a significant ear pain on the left side she already was seen in the outpatient treated with Augmentin for the last at least 6 days with no improvement, she mentioned in the stress that she is not able to sleep and the pain is getting worse the pain is extending down to posterior aspect of her left ear in addition she is not able to hear with the left ear The patient denies any dental problems she denies any difficulty breathing or any other concerns at the moment Related Data Home Medications ?Medication ?Instructions ?Recorded ?Confirmed amoxicillin 875 mg-potassium 1 tab PO Q12H 07/18/24 07/18/24 clavulanate 125 mg tablet ibuprofen 800 mg tablet 800 mg PO Q8H PRN pain 07/18/24 07/18/24 Previous Rx's ?Medication ?Instructions ?Recorded hydrocodone 5 mg-acetaminophen 325 1 tab PO Q6H PRN pain 3 days #12 11/06/23 mg tablet tabs hyoscyamine sulfate 0.125 mg 0.125 mg PO Q6H PRN abdominal pain 11/06/23 tablet (Levsin) #12 tabs ketorolac 10 mg tablet 10 mg PO TID PRN pain #10 tabs 11/06/23 ondansetron 4 mg disintegrating 4 mg PO Q6H PRN nausea and 11/06/23 tablet vomiting #12 tabs sulfamethoxazole 800 1 tab PO BID 7 days #14 tabs 11/06/23 mg-trimethoprim 160 mg tablet (Bactrim DS) Allergies Allergy/AdvReac Type Severity Reaction Status Date / Time cefixime (From Suprax) Allergy Severe Verified 09/10/23 13:08 Review of Systems ROS Status of ROS 10 or more systems reviewed and unremark able except as noted in history and below PFSH PFSH Social History Little interest or pleasure in doing things: not at all Feeling down, depressed, or hopeless: not at all Exam Narrative Exam Narrative: Nurses notes and vital signs reviewed and patient is not hypoxic. General: Well-appearing and in no apparent distress. Skin: Warm, dry, no pallor noted. No rash. Head: Normocephalic, atraumatic. Neck: Supple, non-tender. Eye: Pupils are equal, round and EOMI. No scleral icterus. Ears, Nose, Mouth, and Throat: TM are clear, no nasal mucosal hypertrophy. Patient have a significant external auditory canal erythema and the patient have a swelling as well as the tympanic membrane I could not visualize, patient have significant tenderness anterior to the left auricle and she also had mastoid bone tenderness although there is no redness, on dental exam there was no finding that cannot explain the patient pain Cardiovascular: Regular Rate and Rhythm without murmur, gallop or rub. Respiratory: No accessory muscle use or respiratory distress. Lungs are clear to auscultation, no wheezing, rales or rhonchi Chest Wall: no tenderness Back: No midline thoracic or lumbar vertebral tenderness. No CVA tenderness Musculoskeletal: normal ROM, no calf or popliteal tenderness, no lower extremity edema/swelling GI: Abdomen is soft, non-distended. Normal bowel sounds. No masses appreciated. No tenderness to palpation. No rebound, guarding, or rigidity noted. Neurological: A&O x4. No cranial nerve dysfunction observed. No truncal ataxia. Moves all extremities. Sensation intact. Psychiatric: Cooperative and interactive. Normal mood and affect. Constitutional Vital Signs, click to edit/add: Last Vital Signs Temp 98.4 F 07/18/24 10:42 Pulse 93 H 07/18/24 10:42 Resp 18 07/18/24 10:42 BP 136/93 H 07/18/24 10:42 Pulse Ox 100 07/18/24 10:42 O2 Del Method Room Air 07/18/24 10:42 Course Vital Signs Vital signs: Vital Signs Temperature 98.4 F 07/18/24 10:42 Pulse Rate 93 H 07/18/24 10:42 Respiratory Rate 18 07/18/24 10:42 Blood Pressure 136/93 H 07/18/24 10:42 Pulse Oximetry 100 07/18/24 10:42 Oxygen Delivery Method Room Air 07/18/24 10:42 Temperature 98.4 F 07/18/24 10:42 Pulse Rate 93 H 07/18/24 10:42 Respiratory Rate 18 07/18/24 10:42 Blood Pressure 136/93 H 07/18/24 10:42 Pulse Oximetry 100 07/18/24 10:42 Oxygen Delivery Method Room Air 07/18/24 10:42 Medical Decision Making MDM Narrative Medical decision making narrative: Patient was a lot of distress due to pain she was not able to sleep for the last few days The patient CBC and chemistry showed no acute pathology The patient CAT scan of the auditory canal showed Findings are consistent with left otomastoiditis, otitis externa and periauricular cellulitis. No aggressive features or abscess. Patient case discussed with from the ENT service from [facility] and he recommended the patient need IV antibiotics he does not think that she need any ENT procedure at the moment and she just needs mostly a 48 hours of IV antibiotic with monitoring for improvement Patient case was discussed with and he agreed on admitting the patient for further evaluation The patient already was started on levofloxacin IV as well as morphine IV for pain after Toradol Discharge Plan Discharge Chief Complaint: Ear Clinical Impression: Acute mastoiditis, Otitis media Patient Disposition: Admitted As Inpatient Time of Disposition Decision: 16:15
[2024-07-18] MEDS: 0.9 % SODIUM CHLORIDE 1,000 ML 500 ML IV (11:42)
[2024-07-18] MEDS: KETOROLAC TROMETHAMINE 30 MG/ML VIAL 15 MG IVP (11:42)
[2024-07-18 11:46] LABS: Basophils Percent Auto 0.2 % (0.2-2.0); Eosinophils Absolute Auto 0.2 10^3/uL (0.0-0.7); Eosinophils Percent Auto 1.7 % (0.9-7.0); Hemoglobin 12.1 g/dL (12.0-16.0); Immature Granulocytes Abs Auto 0.04 10^3/uL (0.00-0.03); Immature Granulocytes Pct Auto 0.4 % (0.0-0.5); Lymphocytes Absolute Auto 2.3 10^3/uL (1.2-3.8); Lymphocytes Percent Auto 22.3 % (20.5-60.0); Mean Corpuscular HGB Conc 32.7 g/dL (29.9-35.2); Mean Corpuscular Volume 94.9 fL (81.0-99.0); Mean Platelet Volume 9.7 fL (9.5-13.5); Monocytes Absolute Auto 0.5 10^3/uL (0.3-0.8); Monocytes Percent Auto 5.1 % (1.7-12.0); Neutrophils Absolute Auto 7.2 10^3/uL (1.4-6.5); Neutrophils Percent Auto 70.3 % (43.0-75.0); Platelet Count 288 10^3/uL (150-450); Red Cell Distribution Width 11.9 % (11.0-15.0); White Blood Count 10.3 10^3/uL (4.0-11.0)
[2024-07-18 11:54] LABS: HCG Qualitative NEGATIVE (NEGATIVE); Internal Control Within Normal Limits
[2024-07-18 12:00] LABS: Alanine Aminotransferase 28 U/L (14-59); Albumin Globulin Ratio 0.8; Albumin Level 3.2 g/dL (3.4-5.0); Alkaline Phosphatase 60 U/L (46-116); Anion Gap 13.7; Aspartate Amino Transferase 14 U/L (15-37); Bilirubin Total 0.3 mg/dL (0.2-1.0); Calcium 9.1 mg/dL (8.5-10.1); Carbon Dioxide 27.1 mmol/L (21.0-32.0); Chloride 105 mmol/L (98-107); Estimated GFR (African America >60 (>=60 mL/min/1.73m^2); Estimated GFR (Non-African Ame >60 (>=60 mL/min/1.73m^2); Glucose 107 mg/dL (74-106); Potassium 3.8 mmol/L (3.5-5.1); Sodium 142 mmol/L (136-145); Total Protein 7.2 g/dL (6.4-8.2)
--- NOTE | 2024-07-18 12:16 | CT_ITS ---
[address] [address] Patient Name: LAVELLE TO MRN: [id number] date: 1990 Sex: F Assigned Patient Location: ER Current Patient Location: ER Accession/Order Number: [id number] Exam Date: 07/18/2024 13:30 Report Date: 07/18/2024 15:06 At the request of: LIA YOUNG Procedure: CT int auditory canals w con CT TEMPORAL BONE WITH IV CONTRAST. CLINICAL HISTORY: left ear infection and swelling COMPARISON: None. TECHNIQUE: Axial CT images of the temporal bone with IV contrast. Coronal and sagittal reformatted images were obtained. Approximately ML ml Isovue 300 was administered intravenously. FINDINGS: MASTOID AIR CELLS: There is fluid in the left mastoid air cells. The right mastoid air cells are clear. Intact tegmen tympani and tegmen mastoideum. No osseous destruction. EXTERNAL AUDITORY CANALS: There is thickening and hyperenhancement of the left external auditory canal. No fluid collection. . Unremarkable right external auditory canal. MIDDLE EAR CAVITIES: There is opacification of the left middle ear cavity without osseous destruction. Intact left middle ear ossicles. Intact left scutum. . Unremarkable right middle ear cavity. INNER EAR STRUCTURES: Unremarkable cochlea and semicircular canals. SOFT TISSUES: There is left periauricular inflammation. There is also inflammation of the left parotid gland. No fluid collection. No gas. . PARANASAL SINUSES: Clear.. OSSEOUS STRUCTURES: No acute osseous abnormality.. ORBITS: Normal orbits. No inflammation or fluid collection. VISUALIZED INTRACRANIAL CONTENTS: No acute findings. CT/CT int auditory canals w con IMPRESSION: 1. Findings are consistent with left otomastoiditis, otitis externa and periauricular cellulitis. No aggressive features or abscess. 2. Acute left parotitis which may be reactive Electronically authenticated by: ISMAEL CRANE Date: 07/18/2024 15:06
[2024-07-18] MEDS: LEVOFLOXACIN IN DEXTROSE 5 % 750 MG/150 ML PREMIX 100 MG IV (12:33)
[2024-07-18] MEDS: MORPHINE SULFATE 2 MG/ML SYRINGE IV (15:29)
[2024-07-18] MEDS: CIPROFLOXACIN HCL/DEXAMETH 0.3%/0.1% OTIC SUSP 150 DROP/7.5 ML BOTTLE OT ×2 (16:32→21:30)
--- OUTSIDE RECORDS SUMMARY | 2024-07-18 17:16 | XMS_ITS | CCD ---
Author Organization [facility] Care Team Providers Care Buffet Manager Name Role Phone GEMMA, RICHELLE Unavailable Unavailable [...] NO PCP Primary Care Unavailable EDWARD HAN Attending Unavailable NO PCP, NO PCP Primary Care Unavailable NATALIO BARRERA Attending Unavailable NO PCP, NO PCP Primary Care Unavailable Allergies Allergy Classification Reported Allergen(s) Allergy Type Date of Onset Reaction(s) Facility Cephalosporins (antibiotic) (1 source) Cefixime Drug Allergy 5 Hives, Swelling [facility] (2 sources) Cefixime; Translations: [CEFIXIME] Drug Allergy [...] Facility Surgical Pathologyon 024 Surgical Pathology Normal [facility] Comment on above: Result Comment: [facility] [address] [place] [address] Surgical Pathology Consultation Patient Name:SUN TO:1990 (Age: 33)Gender:FTaken:4Reported:4Physician(s):Edward Han D.O. ([phone])Copy To: Rec. #:[id number]: #[id number] Final Pathologic Diagnosis Gallbladder, cholecystectomy: Chronic cholecystitis and cholelithiasis. Report Electronically Signed Out cjb/4Cdavid Edouard MD Interpretation performed at [facility], [address] [place] [address], License number: [id number]. Clinical History Cholelithiasis, chronic cholecystitis. Gross Description [...] green and velvety with abundant yellow streaking. Financial Adviser sections are submitted in a single cassette to include the shaved cystic duct, a traffic workforce representative section of the gallbladder neck body and fundus. (1,ss,[id number], m6) TB tgb/4AO Specimen(s) Received Gallbladder Fee Codes(s): 1; 87864 [id number] 06-24-2021 SARS-CoV-2 (COVID-19) RNA TINO+probe Ql (Unsp spec) Detected [facility] Comment on above: Result Comment: Rapid NAAT: [...] this assay. Fact sheet for Healthcare Providers: https://www.fda.gov/media/930046/download Fact sheet for Patients: https://www.fda.gov/media/606710/download Methodology: Isothermal Nucleic Acid Amplification Results reported to the appropriate Health Department Performed By: #### C OVRB #### [facility] [address] [place] [address] [place] [address] Aircraft Avionics Technician: Rey Clark MD SURGICALon 03-02-2021 SURGICAL [facility] [id number] Assoc. Page 1 of 1 [address] [place] [address] PROC: 03/02/2021 [facility] RECV: 03/06/[address] RPTD: 03/07/2021 [place] [address] LOC: [facility] ACCT: [id number] SEX: F : 1990 AGE: 30 Y PATHOLOGY REPORT ATTN: JUAN SLOAN REQ: JUAN SLOAN Clinical Information: AUB FINAL DIAGNOSIS: Endometrium, curettings: Benign interval phase endometrium. Benign endocervix and transition zone. Specimen: ENDOMETRIAL CURETTINGS Gross Examination: The container is labeled Sun To, endometrial curettings. Received in formalin are bits of rgeen tissue aggregating to 1.4 x 1 x 0.2 cm. 1 ns. SIO/DKR:[id number] Microscopic Examination: Sections show numerous fragments of benign endometrium containing interval phase glands. There is no evidence of hyperplasia, atypia, or malignancy. Also present are multiple fragments of benign transition zone with squamous metaplasia. [id number] OSMAN DUENAS M.D., F.C.A.P [facility]/ [facility] Printed on: 03/07/2021 [address] [place], [place] [address] Original print date: 03/07/2021 Normal [facility] NOVEL CORONAVIRUS NASOPHARYN GEAL - [facility] SPECIMEN ONLYon 02-27-2021 SARS-CoV-2 (COVID-19) RNA TINO+probe Ql (Unsp spec) Not detected Normal NOT DETECTED [facility] Comment on above: Order Comment: This test was performed using real time PCR for the qualitative detection of SARS-CoV-2 nucleic acid. The test has been reviewed by the FDA and given emergency use authorization. This test was developed and its performance characteristics determined by The [facility] at [facility]. This test is used for clinical purposes. It should not be regarded as investigational or for research. Result Comment: [facility] Negative results do not preclude [...] or clinically deteriorating. Performed By: #### L [id number] #### [facility] (DEFAULT) [address] [place] [address] CT BRAIN WOon 09-20-2019 CT BRAIN WO [...] electronically signed by: Dr. Dimitry Maldonado Normal [facility] UA w reflex C&Son 02-22-2019 Reflex Culture? URINE CULTURE NOT INDICATED Normal [facility] Comment on above: Performed By: #### U A w reflex C&S #### [facility] [address] [place] [address] Crystals LM Nom (Urine sed) NONE SEEN Normal NONE SEEN [facility] Comment on above: Performed By: #### U A w reflex C&S #### [facility] [address] [place] [address] Bacteria LM.HPF (Urine sed) [#/Area] Negative Normal NEGATIVE [facility] Comment on above: Performed By: #### U A w reflex C&S #### [facility] [address] [place] [address] Mucus Ql (Urine sed) Negative Normal NEGATIVE [facility] Comment on above: Performed By: #### U A w reflex C&S #### [facility] [address] [place] [address] Casts LM.LPF (Urine sed) [#/Area] NONE SEEN Normal NONE SEEN [facility] Comment on above: Performed By: #### U A w reflex C&S #### [facility] [address] [place] [address] Epithelial cells LM.HPF (Urine sed) [#/Area] FEW Normal NEGATIVE [facility] Comment on above: Performed By: #### U A w reflex C&S #### [facility] [address] [place] [address] RBC (Bld) [#/Vol] NONE SEEN Normal NONE SEEN [facility] Comment on above: Performed By: #### U A w reflex C&S #### [facility] [address] [place] [address] WBC (Bld) [#/Vol] NONE SEEN Normal NONE SEEN [facility] Comment on above: Performed By: #### U A w reflex C&S #### [facility] [address] [place] [address] Leukocyte esterase Test strip Ql (U) Negative Normal NEGATIVE [facility] Comment on above: Performed By: #### U A w reflex C&S #### [facility] [address] [place] [address] Nitrite Ql (U) Negative Normal NEGATIVE [facility] Comment on above: Performed By: #### U A w reflex C&S #### [facility] [address] [place] [address] Urobilinogen, Dipstick 0.2 Normal 0.2 - 1.0 [facility] Comment on above: Performed By: #### U A w reflex C&S #### [facility] [address] [place] [address] Protein, Qual Negative Normal NEGATIVE [facility] Comment on above: Performed By: #### U A w reflex C&S #### [facility] [address] [place] [address] pH (U) 6.5 [pH] Normal 5.0 - 9.0 [facility] Comment on above: Performed By: #### U A w reflex C&S #### [address] [address] Blood, Dipstick Negative Normal NEGATIVE [facility] Comment on above: Performed By: #### U A w reflex C&S #### [address] [address] Specific gravity (U) [Rel density] 1.010 Normal 1.005 - 1.030 [facility] Comment on above: Performed By: #### U A w reflex C&S #### [address] [address] Ketone, Dipstick Negative Normal NEGATIVE [facility] Comment on above: Performed By: #### U A w reflex C&S #### [address] [address] Bilirubin, Dipstick Negative Normal NEGATIVE [facility] Comment on above: Performed By: #### U A w reflex C&S #### [address] [address] Glucose, Dipstick Negative Normal NEGATIVE [facility] Comment on above: Performed By: #### U A w reflex C&S #### [address] [address] Character (U) CLEAR Normal CLEAR [facility] Comment on above: Performed By: #### U A w reflex C&S #### [address] [place] [address] Color (U) YELLOW Normal [facility] Comment on above: Performed By: #### U A w reflex C&S #### [facility] [address] [place] [address] Age at specimen collection = Normal [facility] Comment on above: Performed By: #### U A w reflex C&S #### [facility] [address] [place] [address] XR ABD AP/ERECT W PA CHESTon 02-22-2019 [...] electronically signed by: Dr. Rey Barton Normal [facility] CBC W Auto Differentialon Abs Neut # 8.0 10 X 3/mm High 1.8 - 7.7 [facility] Comment on above: Performed By: #### C BC Auto Diff #### [facility] [address] [place] [address] Basophils/100 WBC (Bld) 0 % Normal 0 - 1 [facility] Comment on above: Performed By: #### C BC Auto Diff #### [facility] [address] [place] [address] Eosinophils (Bld) [#/Vol] 0.3 10 X 3/mm Normal 0.0 - 0.5 [facility] Comment on above: Performed By: #### C BC Auto Diff #### [facility] [address] [place] [address] Eosinophils/100 WBC (Bld) 3 % Normal 0 - 5 [facility] Comment on above: Performed By: #### C BC Auto Diff #### [address] [place] [address] Erythrocyte distribution width (RBC) [Ratio] 14.3 % Normal 11.5 - 14.5 [facility] Comment on above: Performed By: #### C BC Auto Diff #### [address] [place] [address] Hematocrit (Bld) [Volume fraction] 34.6 % Low 36.0 - 47.0 [facility] Comment on above: Performed By: #### C BC Auto Diff #### [address] [address] Hemoglobin (Bld) [Mass/Vol] 11.2 g/dL Low 12.0 - 16.0 [facility] Comment on above: Performed By: #### C BC Auto Diff #### [address] [place] [address] Lymphocytes (Bld) [#/Vol] 3.6 10 X 3/mm Normal 1.0 - 4.0 [facility] Comment on above: Performed By: #### C BC Auto Diff #### [address] [place] [address] Lymphocytes/100 WBC (Bld) 29 % Normal 20 - 40 [facility] Comment on above: Performed By: #### C BC Auto Diff #### [address] [place] [address] MCH (RBC) [Entitic mass] 28.1 pg Normal 27.0 - 35.0 [facility] Comment on above: Performed By: #### C BC Auto Diff #### [address] [place] [address] MCHC (RBC) [Mass/Vol] 32.4 g/dL Normal 32.0 - 36.0 [facility] Comment on above: Performed By: #### C BC Auto Diff #### [address] [address] MCV (RBC) [Entitic vol] 86.6 fL Normal 80.0 - 100.0 [facility] Comment on above: Performed By: #### C BC Auto Diff #### [address] [address] Monocytes/100 WBC (Bld) 5 % Normal 1 - 15 [facility] Comment on above: Performed By: #### C BC Auto Diff #### [address] [address] Neutrophils/100 WBC (Bld) 63 % Normal 50 - 70 [facility] Comment on above: Performed By: #### C BC Auto Diff #### [address] [address] Platelet mean volume (Bld) [Entitic vol] 7.6 fL Normal 7.5 - 11.5 [facility] Comment on above: Performed By: #### C BC Auto Diff #### [address] [address] Platelets (Bld) [#/Vol] 358 uLx10 Normal 150 - 450 [facility] Comment on above: Performed By: #### C BC Auto Diff #### [address] [address] RBC (Bld) [#/Vol] 4.00 10 X 6/mm Low 4.20 - 5.40 [facility] Comment on above: Performed By: #### C BC Auto Diff #### [address] [place] [address] WBC (Bld) [#/Vol] 12.6 10 X 3/mm High 3.7 - 11.0 [facility] Comment on above: Performed By: #### C BC Auto Diff #### [address] [place], [place] [address] SURGICALon 02-17-2019 SURGICAL [facility] [id number] Assoc. Page 1 of 1 [address] [place] [address] PROC: 02/17/2019 [facility] RECV: 02/18/[address] RPTD: 02/19/2019 [place] [address] LOC: [facility] ACCT: SEX: F [id number] AGE: 28 Y : 1990 PATHOLOGY REPORT [...] specimen is for gross description only. EKM/DKR:[id number] DAWSON JESUS M.D., F.C.A.P. [facility]/ [facility] Printed on: 02/19/[address] [place] [address] Original print date: 02/19/2019 [facility] hCG, Qualitative-Serumon Age at specimen collection = Normal [facility] Comment on above: Performed By: #### H CG,QUAL SERUM #### [address] [place] [address] Performed By: #### C BC Auto Diff #### [address] [place] [address] hCG, Qualitative-Serum Negative Normal NEGATIVE [facility] Comment on above: Performed By: #### H CG,QUAL SERUM #### [facility] [address] [place] [address] Internal Control ACCEPTABLE Normal [facility] Comment on above: Performed By: #### H CG,QUAL SERUM #### [facility] [address] [place] [address] Streptococcus Group A Cultur e-Pharyngeal Swabon 02-13-2019 Streptococcus Group A Culture-Pharyngeal Swab Negative Normal NEGATIVE [facility] Comment on above: Result Comment: A po sitive result indicates the specimen is presumptively positive for Group A Beta Strep by bacitracin method. Performed By: #### S TRP SCR, GRP A #### [address] [place] [address] Group A Strepon 02-11-2019 Internal Control ACCEPTABLE Normal [facility] Comment on above: Performed By: #### R APID STREP SCR #### [address] [address] S. pyogenes Ag IA Ql (Unsp spec) Negative Normal NEGATIVE [facility] Comment on above: Performed By: #### R APID STREP SCR #### [address] [address] XR CHEST P/L (2 view)on 01-25 XR [...] electronically signed by: Dr. Deion Sigala Normal [facility] Streptococcus Group A Cultur e-Pharyngeal Swabon 02-10-2019 Age at specimen collection = Normal [facility] Comment on above: Performed By: #### S TRP SCR, GRP A #### [facility] [address] [place] [address] Performed By: #### R APID STREP SCR #### [facility] [address] [place] [address] RAPID FLUon 11-01-2018 Flu B Negative Normal NEGATIVE [facility] Comment on above: Result Comment: A po sitive result indicates the presence of Influenza A/B antigen. A negative result should be interpreted as presumptively negative for the presence of Influenza A/B antigen. Performed By: #### F IRIS A/B MOLECUL #### [facility] [address] [place] [address] Internal Control ACCEPTABLE Normal [facility] Comment on above: Performed By: #### F IRIS A/B MOLECUL #### [facility] [address] [place] [address] Flu A Negative Normal NEGATIVE [facility] Comment on above: Performed By: #### F IRIS A/B MOLECUL #### [facility] [address] [place] [address] Age at specimen collection = Normal [facility] Comment on above: Performed By: #### F IRIS A/B MOLECUL #### [address] [place] [address] Vital Signs Date Time Vital Sign Value Performing Clinician Russ quiroz 11-11-2020 21:27-0400 Diastolic blood pressure 67 mm[Hg] Chuckie Alvarenga MD Work Phone: [facility] Phone: 11-11-2020 21:27-0400 Heart rate 91 /min Chuckie Alvarenga MD Work Phone: [employer] Work Phone: 11-11-2020 21:27-0400 Respiratory rate 16 /min Chuckie Alvarenga MD Work Phone: [employer] Work Phone: 11-11-2020 21:27-0400 SaO2% (BldA) [Mass fraction] 98 % Chuckie Alvarenga MD Work Phone: [employer] Work Phone: 11-11-2020 21:27-0400 Systolic blood pressure 129 mm[Hg] Chuckie Alvarenga MD Work Phone: [employer] Work Phone: 11-11-2020 20:38-0400 Body mass index (BMI) [Ratio] 38.11 kg/m2 Chuckie Alvarenga MD Work Phone: [employer] Work Phone: 11-11-2020 20:38-0400 Body temperature 99.39 [degF] Chuckie Alvarenga MD Work Phone: [employer] Work Phone: 11-11-2020 20:38-0400 Body weight 103.87 kg Chuckie Alvarenga MD Work Phone: [employer] Work Phone: Encounters Encounter Date Encounter Type Care Provider Facility Start: 12-16-2023 End: 12-16-2023 ambulatory NATALIO BARRERA [facility] Start: 12-02-2023 End: 12-02-2023 Evaluation and management of inpatient CANDI ROSS [facility] Start: 12-02-2023 End: 12-02-2023 Evaluation and management of inpatient EDWARD YOCASTAJEFFERYMarco A [facility] Start: 11-27-2023 End: 11-27-2023 ambulatory [facility] Start: 11-19-2023 End: 11-19-2023 ambulatory THOMSON Mike [facility] Start: 08-07-2021 End: 08-07-2021 Emergency department [facility] Start: 06-24-2021 End: 06-24-2021 Emergency department patient visit FRANCOIS Vaz [facility] Start: 11-11-2020 End: 11-11-2020 Emergency department patient visit CHUCKIE ALVARENGA [facility] Start: 11-11-2020 End: 11-11-2020 Emergency department patient visit Chuckie Alvarenga MD Work Phone: [facility] ED Comment on above: Cellulitis and absce ss of leg (Primary Dx); Cellulitis, abdominal wall Start: 11-25-2018 End: 11-26-2018 Patient encounter procedure DEFAULT PHYSICIAN Facility:[facility] Start: 02-11-2017 End: 02-12-2017 Ambulatory [facility] Plan of Treatment Date Care Activity Detail Author Start: 03-15-2026 DTaP/Tdap/Td vaccine (2 - Td) DTaP/Tdap/Td vaccine (2 - Td) [facility] Phone: Start: 03-28-2021 Influenza vaccination Flu vacc ine (Season Ended) [facility] Phone: Start: 2013 Screening for malign ant neoplasm of cervix Cervical cancer screen [facility] Phone: Start: 2008 COVID-19 Vaccine (1) COVID-19 Vaccin e (1) [facility] Phone: Start: 2007 HIV screening HIV screen [facility] Work Phone: Start: 1998 Pneumococcal 0-64 ye ars Vaccine (1 of 1 - PPSV23) Pneumococcal 0-64 years Vaccine (1 of 1 - PPSV23) [facility] Phone: Start: 1993 Varicella vaccine (1 of 2 - 2-dose childhood series) Varicella vaccine (1 of 2 - 2-dose childhood series) [employer] Work Phone: Start: 1992 Hepatitis C screening Hepatitis C sc lindseyn [employer] Work Phone: Immunizations Immunization Date Immunization Notes Care Provider Fa rita 03-15-2016 tetanus toxoid, redu rodri diphtheria toxoid, and acellular pertussis vaccine, adsorbed Chuckie Jordan CALDERON Work Phone: [facility] Phone: Payers Date Payer Category Payer Unknown [id number] 1990 Unknown [id number] 2.16.8 [id number] 1990 Unknown [id number] 2.16.8 [id number] 1990 Unknown [id number] 2.16.8 [id number] 1990 Unknown [id number] 2.16.8 [id number] 1990 Unknown [id number] 2.16.8 [id number] 1990 Unknown [id number] 2.16.8 [id number] Medicaid [id number] Unknown Social History Date Type Detail Facility Start: 11-11-2020 Tobacco smoking stat [facility] Current every day smoker [employer] Work Phone: History of tobacco use Cigarette Smoker [facility] Start: 11-11-2020 Cigarettes smoked current (pack per day) - Reported [facility] Phone: Start: 11-11-2020 Tobacco use and exposure Never used [employer] Start: 11-11-2020 Alcohol intake Current non-dr bar turner of alcohol (finding) [facility] Phone: Start: 11-03-2018 Tobacco Comment declined [facility] Phone: Start: 06-14-2015 Alcohol Comment occ [facility] Phone: Sex Assigned At Not on file [facility] Phone: Exposure to SARS-CoV -2 (event) Not sure [facility] Discharge instructions 11-11-2020 InstructionsAttachments Note Date & [...] attachments cannot be sent through Care Everywhere.Cellulitis (Maori)Abscess: Skin (Maori)documented in this encounter [facility] Phone: Evaluation note Note Date & Type Note Facility Evaluation note Diagnosis Cellulitis and abscess of leg- Primary Cellulitis and abscess of leg, except foot Cellulitis, abdominal wall Cellulitis and abscess of trunk documented in this encounter [facility] Phone: Summary Purpose Family History No Family History Records FoundNo Family History Records FoundNo Family History Records FoundNo Family History Records FoundNo Family History Records FoundNo Family History Records FoundNo Family History Records FoundNo Family History Records FoundNo Family History Records Found Advance Directives No Advanced Directives Records FoundDocuments on File Type Date Recorded Patient Financial Adviser Expl anation ACP-Advance Directive ACP-Power of Snow Ranger Latest Code Status on File Code Status Date Activated Date Inactivated Comments Full Code 11/18/2018 4:11 AM 11/18/2018 7:55 AM Full Code 03/13/2016 11:53 PM 03/15/2016 4:20 PM Full Code 03/13/2016 9:44 AM 03/13/2016 11:53 PM Additional Source Comments INFORMATION SOURCE (unrecogn ized section and content) DATE CREATED AUTHOR 01/20/[address] [facility] DATE CREATED AUTHOR AUTHOR'S ORGANIZ ATION 12/02/2018 [facility] DATE CREATED AUTHOR AUTHOR'S ORGANIZ ATION 02/19/2019 [facility] DATE CREATED AUTHOR AUTHOR'S ORGANIZ ATION 10/08/2019 [facility] DATE CREATED AUTHOR AUTHOR'S ORGANIZ ATION 03/02/2021 [facility] DATE CREATED AUTHOR AUTHOR'S ORGANIZ ATION 03/08/2021 [facility] DATE CREATED AUTHOR AUTHOR'S ORGANIZ ATION 08/08/2021 Doris Rangel [facility] DATE CREATED AUTHOR AUTHOR'S ORGANIZ ATION 12/11/2023 [facility] DATE CREATED AUTHOR AUTHOR'S ORGANIZ ATION [...] BE BASED ON THE PRIMARY CLINICAL RECORDS. [facility]. provides no warranty or guarantee of the accuracy or completeness of information in this document.
[2024-07-18 17:30] VITALS: BP 139/88; PULSE 88; TEMP 36.8; O2SAT 97
[2024-07-18 17:32] VITALS: BMI 43.7
[2024-07-18] MEDS: ACETAMINOPHEN 325 MG TABLET 650 MG PO (17:35)
[2024-07-18] MEDS: OXYCODONE HCL 5 MG TABLET PO (17:35)
[2024-07-18] MEDS: KETOROLAC TROMETHAMINE 30 MG/ML VIAL IVP ×2 (17:35→23:12)
[2024-07-18] MEDS: ENOXAPARIN SODIUM 40 MG/0.4 ML SYRINGE SUBQ (17:36)
[2024-07-18] MEDS: VANCOMYCIN HCL 2,000 MG in 0.9 % SODIUM CHLORIDE 500 ML 250 MG IV (19:21)
[2024-07-18 20:30] VITALS: O2SAT 97
[2024-07-18 21:37] VITALS: BP 98/62; PULSE 84; TEMP 37.1; O2SAT 97
[2024-07-18] MEDS: DIPHENHYDRAMINE HCL 25 MG CAPSULE PO (22:22)
[2024-07-19] MEDS: KETOROLAC TROMETHAMINE 30 MG/ML VIAL IVP ×3 (05:21→17:16)
[2024-07-19 06:00] VITALS: BP 103/70; PULSE 82; TEMP 36.9
--- OUTSIDE RECORDS SUMMARY | 2024-07-19 06:05 | XMS_ITS | CCD ---
Author Organization [facility] Care Team Providers Care Forming Yardage Control Operator Name Role Phone GEMMA, RICHELLE Unavailable Unavailable GEMMA, RICHELLE Unavailable Unavailable UNKNOWN, PROVIDER Unavailable Unavailable GEMMA, RICHELLE Unavailable Unavailable PHYSICIAN, DEFAULT Admitting Unavailable PHYSICIAN, DEFAULT Attending Unavailable Unavailable Primary Care Provider UnavailFRANCOIS Ivan Attending Unavailable FRANCOIS KING E Attending Unavailable CHUCKIE ALVARENGA Attending Unavailable EDWADR HAN Referring Unavailable NO PCP, NO PCP [...] source) Cefixime Drug Allergy 5 Hives, Swelling [facility] (2 sources) Cefixime; Translations: [CEFIXIME] [...] Facility Surgical Pathologyon 024 Surgical Pathology Normal [facility] Comment on above: Result Comment: [facility] [address] [place] [address] Surgical Pathology Consultation Patient Name:SUN TO:1990 (Age: 33)Gender:FTaken:4Reported:4Physician(s):Edward Han D.O. ([phone])Copy To: Rec. #:[id number]: #[id number] Final Pathologic Diagnosis Gallbladder, cholecystectomy: Chronic cholecystitis and cholelithiasis. Report Electronically Signed Out cjb/4Cdavid Edouard MD Interpretation performed at [facility], [address] [place] [address], License number: [id number]. Clinical History Cholelithiasis, chronic cholecystitis. Gross Description [...] green and velvety with abundant yellow streaking. Shirring Machine Operator sections are submitted in a single cassette to include the shaved cystic duct, a registration representative section of the gallbladder neck body and fundus. (1,ss,[id number], m6) TB tgb/4AO Specimen(s) Received Gallbladder Fee Codes(s): 1; 59509 [id number] 06-24-2021 SARS-CoV-2 (COVID-19) RNA TINO+probe Ql (Unsp spec) Detected Abnormal [facility] Comment on above: Result Comment: Rapid NAAT: [...] this assay. Fact sheet for Healthcare Providers: https://www.fda.gov/media/433485/download Fact sheet for Patients: https://www.fda.gov/media/739172/download Methodology: Isothermal Nucleic Acid Amplification Results reported to the appropriate Health Department Performed By: #### C OVRB #### [facility] [address] [place] [address] [place] [address] Project Accountant: Rey Clark MD SURGICALon 03-02-2021 [facility] [id number] Assoc. Page 1 of [address] [place] [address] PROC: 03/02/2021 [facility] RECV: 03/06/[address] RPTD: 03/07/2021 [place] [address] LOC: [facility] ACCT: [id number] SEX: F : 1990 AGE: 30 Y [...] of benign transition zone with squamous metaplasia. [id number] OSMAN DUENAS M.D., F.C.A.P [facility]/ [facility] Printed on: 03/07/2021 [address] [place], [place] [address] Original print date: 03/07/2021 Normal [facility] NOVEL CORONAVIRUS NASOPHARYN GEAL - [facility] SPECIMEN ONLYon 02-27-2021 SARS-CoV-2 (COVID-19) RNA TINO+probe Ql (Unsp spec) Not detected Normal NOT DETECTED [facility] Comment on above: Order Comment: This test was performed using real time PCR for the qualitative detection of SARS-CoV-2 nucleic acid. The test has been reviewed by the FDA and given emergency use authorization. This test was developed and its performance characteristics determined by The [facility] at [facility]. This test is used for clinical purposes. It should not be regarded as investigational or for research. Result Comment: [facility] Negative results do not preclude [...] or clinically deteriorating. Performed By: #### L [id number] #### [facility] (DEFAULT) [address] [place] [address] CT BRAIN WOon 09-20-2019 CT BRAIN WO [...] electronically signed by: Dr. Dimitry Maldonado Normal [facility] UA w reflex C&Son 02-22-2019 Reflex Culture? URINE CULTURE NOT INDICATED Normal [facility] Comment on above: Performed By: #### U A w reflex C&S #### [facility] [address] [place] [address] Crystals LM Nom (Urine sed) NONE SEEN Normal NONE SEEN [facility] Comment on above: Performed By: #### U A w reflex C&S #### [facility] [address] [place] [address] Bacteria LM.HPF (Urine sed) [#/Area] Negative Normal NEGATIVE [facility] Comment on above: Performed By: #### U A w reflex C&S #### [facility] [address] [place] [address] Mucus Ql (Urine sed) Negative Normal NEGATIVE [facility] Comment on above: Performed By: #### U A w reflex C&S #### [facility] [address] [place] [address] Casts LM.LPF (Urine sed) [#/Area] NONE SEEN Normal NONE SEEN [facility] Comment on above: Performed By: #### U A w reflex C&S #### [facility] [address] [place] [address] Epithelial cells LM.HPF (Urine sed) [#/Area] FEW Normal NEGATIVE [facility] Comment on above: Performed By: #### U A w reflex C&S #### [facility] [address] [place] [address] RBC (Bld) [#/Vol] NONE SEEN Normal NONE SEEN [facility] Comment on above: Performed By: #### U A w reflex C&S #### [facility] [address] [place] [address] WBC (Bld) [#/Vol] NONE SEEN Normal NONE SEEN [facility] Comment on above: Performed By: #### U A w reflex C&S #### [facility] [address] [place] [address] Leukocyte esterase Test strip Ql (U) Negative Normal NEGATIVE [facility] Comment on above: Performed By: #### U A w reflex C&S #### [facility] [address] [place] [address] Nitrite Ql (U) Negative Normal NEGATIVE [facility] Comment on above: Performed By: #### U A w reflex C&S #### [facility] [address] [place] [address] Urobilinogen, Dipstick 0.2 Normal 0.2 - 1.0 [facility] Comment on above: Performed By: #### U A w reflex C&S #### [facility] [address] [place] [address] Protein, Qual Negative Normal NEGATIVE [facility] Comment on above: Performed By: #### U A w reflex C&S #### [facility] [address] [place] [address] pH (U) 6.5 [pH] Normal 5.0 - 9.0 [facility] Comment on above: Performed By: #### U A w reflex C&S #### [address] [address] Blood, Dipstick Negative Normal NEGATIVE [facility] Comment on above: Performed By: #### U A w reflex C&S #### [address] [address] Specific gravity (U) [Rel density] 1.010 Normal 1.005 - 1.030 [facility] Comment on above: Performed By: #### U A w reflex C&S #### [address] [address] Ketone, Dipstick Negative Normal NEGATIVE [facility] Comment on above: Performed By: #### U A w reflex C&S #### [address] [address] Bilirubin, Dipstick Negative Normal NEGATIVE [facility] Comment on above: Performed By: #### U A w reflex C&S #### [address] [address] Glucose, Dipstick Negative Normal NEGATIVE [facility] Comment on above: Performed By: #### U A w reflex C&S #### [address] [address] Character (U) CLEAR Normal CLEAR [facility] Comment on above: Performed By: #### U A w reflex C&S #### [address] [place] [address] Color (U) YELLOW Normal [facility] Comment on above: Performed By: #### U A w reflex C&S #### [facility] [address] [place] [address] Age at specimen collection = Normal [facility] Comment on above: Performed By: #### U A w reflex C&S #### [facility] [address] [place] [address] XR ABD AP/ERECT W PA CHESTon 02-22-2019 [...] electronically signed by: Dr. Rey Barton Normal [facility] CBC W Auto Differentialon Abs Neut # 8.0 10 X 3/mm High 1.8 - 7.7 [facility] Comment on above: Performed By: #### C BC Auto Diff #### [facility] [address] [place] [address] Basophils/100 WBC (Bld) 0 % Normal 0 - 1 [facility] Comment on above: Performed By: #### C BC Auto Diff #### [facility] [address] [place] [address] Eosinophils (Bld) [#/Vol] 0.3 10 X 3/mm Normal 0.0 - 0.5 [facility] Comment on above: Performed By: #### C BC Auto Diff #### [facility] [address] [place] [address] Eosinophils/100 WBC (Bld) 3 % Normal 0 - 5 [facility] Comment on above: Performed By: #### C BC Auto Diff #### [address] [place] [address] Erythrocyte distribution width (RBC) [Ratio] 14.3 % Normal 11.5 - 14.5 [facility] Comment on above: Performed By: #### C BC Auto Diff #### [address] [place] [address] Hematocrit (Bld) [Volume fraction] 34.6 % Low 36.0 - 47.0 [facility] Comment on above: Performed By: #### C BC Auto Diff #### [address] [address] Hemoglobin (Bld) [Mass/Vol] 11.2 g/dL Low 12.0 - 16.0 [facility] Comment on above: Performed By: #### C BC Auto Diff #### [address] [place] [address] Lymphocytes (Bld) [#/Vol] 3.6 10 X 3/mm Normal 1.0 - 4.0 [facility] Comment on above: Performed By: #### C BC Auto Diff #### [address] [place] [address] Lymphocytes/100 WBC (Bld) 29 % Normal 20 - 40 [facility] Comment on above: Performed By: #### C BC Auto Diff #### [address] [place] [address] MCH (RBC) [Entitic mass] 28.1 pg Normal 27.0 - 35.0 [facility] Comment on above: Performed By: #### C BC Auto Diff #### [address] [place] [address] MCHC (RBC) [Mass/Vol] 32.4 g/dL Normal 32.0 - 36.0 [facility] Comment on above: Performed By: #### C BC Auto Diff #### [address] [address] MCV (RBC) [Entitic vol] 86.6 fL Normal 80.0 - 100.0 [facility] Comment on above: Performed By: #### C BC Auto Diff #### [address] [address] Monocytes/100 WBC (Bld) 5 % Normal 1 - 15 [facility] Comment on above: Performed By: #### C BC Auto Diff #### [address] [address] Neutrophils/100 WBC (Bld) 63 % Normal 50 - 70 [facility] Comment on above: Performed By: #### C BC Auto Diff #### [address] [address] Platelet mean volume (Bld) [Entitic vol] 7.6 fL Normal 7.5 - 11.5 [facility] Comment on above: Performed By: #### C BC Auto Diff #### [address] [address] Platelets (Bld) [#/Vol] 358 uLx10 Normal 150 - 450 [facility] Comment on above: Performed By: #### C BC Auto Diff #### [address] [address] RBC (Bld) [#/Vol] 4.00 10 X 6/mm Low 4.20 - 5.40 [facility] Comment on above: Performed By: #### C BC Auto Diff #### [address] [place] [address] WBC (Bld) [#/Vol] 12.6 10 X 3/mm High 3.7 - 11.0 [facility] Comment on above: Performed By: #### C BC Auto Diff #### [address] [place], [place] [address] SURGICALon 02-17-2019 SURGICAL [facility] [id number] Assoc. Page 1 of 1 [address] [place] [address] PROC: 02/17/2019 [facility] RECV: 02/18/[address] RPTD: 02/19/2019 [place] [address] LOC: [facility] ACCT: SEX: F [id number] AGE: 28 Y : 1990 PATHOLOGY REPORT [...] specimen is for gross description only. [id number] DAWSON JESUS M.D., F.C.A.P. [facility]/ [facility] Printed on: 02/19/[address] [place] [address] Original print date: 02/19/2019 [facility] hCG, Qualitative-Serumon Age at specimen collection = Normal [facility] Comment on above: Performed By: #### H CG,QUAL SERUM #### [address] [place] [address] Performed By: #### C BC Auto Diff #### [address] [place] [address] hCG, Qualitative-Serum Negative Normal NEGATIVE [facility] Comment on above: Performed By: #### H CG,QUAL SERUM #### [facility] [address] [place] [address] Internal Control ACCEPTABLE Normal [facility] Comment on above: Performed By: #### H CG,QUAL SERUM #### [facility] [address] [place] [address] Streptococcus Group A Cultur e-Pharyngeal Swabon 02-13-2019 Streptococcus Group A Culture-Pharyngeal Swab Negative Normal NEGATIVE [facility] Comment on above: Result Comment: A po sitive result indicates the specimen is presumptively positive for Group A Beta Strep by bacitracin method. Performed By: #### S TRP SCR, GRP A #### [address] [place] [address] Group A Strepon 02-11-2019 Internal Control ACCEPTABLE Normal [facility] Comment on above: Performed By: #### R APID STREP SCR #### [address] [address] S. pyogenes Ag IA Ql (Unsp spec) Negative Normal NEGATIVE [facility] Comment on above: Performed By: #### R APID STREP SCR #### [address] [address] XR CHEST P/L (2 view)on 01-25 XR [...] electronically signed by: Dr. Deion Sigala Normal [facility] Streptococcus Group A Cultur e-Pharyngeal Swabon 02-10-2019 Age at specimen collection = Normal [facility] Comment on above: Performed By: #### S TRP SCR, GRP A #### [facility] [address] [place] [address] Performed By: #### R APID STREP SCR #### [facility] [address] [place] [address] RAPID FLUon 11-01-2018 Flu B Negative Normal NEGATIVE [facility] Comment on above: Result Comment: A po sitive result indicates the presence of Influenza A/B antigen. A negative result should be interpreted as presumptively negative for the presence of Influenza A/B antigen. Performed By: #### F IRIS A/B MOLECUL #### [facility] [address] [place] [address] Internal Control ACCEPTABLE Normal [facility] Comment on above: Performed By: #### F IRIS A/B MOLECUL #### [facility] [address] [place] [address] Flu A Negative Normal NEGATIVE [facility] Comment on above: Performed By: #### F IRIS A/B MOLECUL #### [facility] [address] [place] [address] Age at specimen collection = Normal [facility] Comment on above: Performed By: #### F IRIS A/B MOLECUL #### [address] [place] [address] Vital Signs Date Time Vital Sign Value Performing Clinician Russ quiroz 11-11-2020 21:27-0400 Diastolic blood pressure 67 mm[Hg] Chuckie Alvarenga MD Work Phone: [employer] Phone: 11-11-2020 21:27-0400 Heart rate 91 /min Chuckie Alvarenga MD Work Phone: [employer] Work Phone: 11-11-2020 21:27-0400 Respiratory rate 16 /min Chuckie Alvarenga MD Work Phone: [employer] Work Phone: 11-11-2020 21:27-0400 SaO2% (BldA) [Mass fraction] 98 % Chuckie Alvarenga MD Work Phone: [employer] Work Phone: 11-11-2020 21:27-0400 Systolic blood pressure 129 mm[Hg] Chuckie Alvarenga MD Work Phone: [employer] Work Phone: 11-11-2020 20:38-0400 Body mass index (BMI) [Ratio] 38.11 kg/m2 Chuckie Alvarenga MD Work Phone: [employer] Work Phone: 11-11-2020 20:38-0400 Body temperature 99.39 [degF] Chuckie Alvarenga MD Work Phone: [employer] Work Phone: 11-11-2020 20:38-0400 Body weight 103.87 kg Chuckie Alvarenga MD Work Phone: [employer] Work Phone: Encounters Encounter Date Encounter Type Care Provider Facility Start: 12-16-2023 End: 12-16-2023 ambulatory [facility] Start: 12-02-2023 End: 12-02-2023 Evaluation and management of inpatient CANDI ROS[facility] Start: 12-02-2023 End: 12-02-2023 Evaluation and management of inpatient EDWARD [facility]OC[facility]AJEFFERY[facility]co [facility] Start: 11-27-2023 End: 11-27-2023 ambulatory [facility] Start: 11-19-2023 End: 11-19-2023 ambulatory RANBURNE Mike [facility] Start: 08-07-2021 End: 08-07-2021 [facility] Start: 06-24-2021 End: 06-24-2021 Emergency department patient visit FRANCOIS Vaz [facility] Start: 11-11-2020 End: 11-11-2020 Emergency department patient visit CHUCKIE ALVARENGA [facility] Start: 11-11-2020 End: 11-11-2020 Emergency department patient visit Chuckie Alvarenga MD Work Phone: [facility] ED Comment on above: Cellulitis and absce ss of leg (Primary Dx); Cellulitis, abdominal wall Start: 11-25-2018 End: 11-26-2018 Patient encounter procedure DEFAULT PHYSICIAN Facility:[facility] Start: 02-11-2017 End: 02-12-2017 Ambulatory [facility] Plan of Treatment Date Care Activity Detail Author Start: 03-15-2026 DTaP/Tdap/Td vaccine (2 - Td) DTaP/Tdap/Td vaccine (2 - Td) [employer] Phone: Start: 03-28-2021 Influenza vaccination Flu vacc ine (Season Ended) [employer] Phone: Start: 2013 Screening for malign ant neoplasm of cervix Cervical cancer screen [employer] Phone: Start: 2008 COVID-19 Vaccine (1) COVID-19 Vaccin e (1) [employer] Phone: Start: 2007 HIV screening HIV screen [facility] Work Phone: Start: 1998 Pneumococcal 0-64 ye ars Vaccine (1 of 1 - PPSV23) Pneumococcal 0-64 years Vaccine (1 of 1 - PPSV23) [employer] Phone: Start: 1993 Varicella vaccine (1 of 2 - 2-dose childhood series) Varicella vaccine (1 of 2 - 2-dose childhood series) [employer] Work Phone: Start: 1992 Hepatitis C screening Hepatitis C sc lindseyn [employer] Work Phone: Immunizations Immunization Date Immunization Notes Care Provider Fa rita 03-15-2016 tetanus toxoid, redu rodri diphtheria toxoid, and acellular pertussis vaccine, adsorbed Chuckie Jordan [facility] Work Phone: [employer] Phone: Payers Date Payer Category Payer Unknown [id number] 1990 Unknown [id number] 2.16.8 [id number] 1990 Unknown [id number] 2.16.8 [id number] 1990 Unknown [id number] 2.16.8 [id number] 1990 Unknown [id number] 2.16.8 [id number] 1990 Unknown [id number] 2.16.8 [id number] 1990 Unknown [id number] 2.16.8 [id number] Medicaid [id number] Unknown Social History Date Type Detail Facility Start: 11-11-2020 Tobacco smoking stat [facility] Current every day smoker [employer] Work Phone: History of tobacco use Cigarette Smoker [facility] Start: 11-11-2020 Cigarettes smoked current (pack per day) - Reported [employer] Phone: Start: 11-11-2020 Tobacco use and exposure Never used [employer] Start: 11-11-2020 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) [employer] Phone: Start: 11-03-2018 Tobacco Comment declined [employer] Phone: Start: 06-14-2015 Alcohol Comment occ [employer] Phone: Sex Assigned At Not on file [employer] Phone: Exposure to SARS-CoV -2 (event) Not sure [facility] Discharge instructions 11-11-2020 InstructionsAttachments Note Date & [...] attachments cannot be sent through Care Everywhere.Cellulitis (Wolof)Abscess: Skin (Wolof)documented in this encounter [employer] Phone: Evaluation note Note Date & Type Note Facility Evaluation note Diagnosis Cellulitis and abscess of leg- Primary Cellulitis and abscess of leg, except foot Cellulitis, abdominal wall Cellulitis and abscess of trunk documented in this encounter [employer] Phone: Summary Purpose Family History No Family History Records FoundNo Family History Records FoundNo Family History Records FoundNo Family History Records FoundNo Family History Records FoundNo Family History Records FoundNo Family History Records FoundNo Family History Records FoundNo Family History Records Found Advance Directives No Advanced Directives Records FoundDocuments on File Type Date Recorded 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 Expl 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 ACP-Advance Directive 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-Power 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 Manager Latest Code Status on File Code Status Date Activated Date Inactivated Comments Full Code 11/18/2018 4:11 AM 11/18/2018 7:55 AM Full Code 03/13/2016 11:53 PM 03/15/2016 4:20 PM Full Code 03/13/2016 9:44 AM 03/13/2016 11:53 PM Additional Source Comments INFORMATION SOURCE (unrecogn ized section and content) DATE CREATED AUTHOR 01/20/2018 [facility] DATE CREATED AUTHOR AUTHOR'S ORGANIZ ATION 12/02/2018 [facility] DATE CREATED AUTHOR AUTHOR'S ORGANIZ ATION 02/19/2019 [facility] DATE CREATED AUTHOR AUTHOR'S ORGANIZ ATION 10/08/2019 [facility] DATE CREATED AUTHOR AUTHOR'S ORGANIZ ATION 03/02/2021 [facility] DATE CREATED AUTHOR AUTHOR'S ORGANIZ ATION 03/08/2021 [facility] DATE CREATED AUTHOR AUTHOR'S ORGANIZ ATION 08/08/2021 Doris Rangel [facility] DATE CREATED AUTHOR AUTHOR'S ORGANIZ ATION 12/11/2023 [facility] DATE CREATED AUTHOR AUTHOR'S ORGANIZ ATION [...] BE BASED ON THE PRIMARY CLINICAL RECORDS. [employer] [facility]. provides no warranty or guarantee of the accuracy or completeness of information in this document.
[2024-07-19] MEDS: CIPROFLOXACIN HCL/DEXAMETH 0.3%/0.1% OTIC SUSP 150 DROP/7.5 ML BOTTLE OT ×2 (09:11→21:32)
[2024-07-19] MEDS: CIPROFLOXACIN IN 5 % DEXTROSE 400 MG/200 ML PREMIX 100 MG IV (09:29)
[2024-07-19] MEDS: 0.9 % SODIUM CHLORIDE 250 ML 10 ML IV (09:30)
[2024-07-19 11:01] VITALS: O2SAT 97
--- NOTE | 2024-07-19 11:29 | PM.HP ---
HPI H&P: HPI History of Present Illness Chief complaint: L EAR PAIN MASTOIDITIS CELLULITIS FACE PAROTITIS Narrative: 34-year-old female with no significant past medical history presented to ER with left ear and facial pain along with purulent ear discharge. According to the patient she started to notice pain about a week ago. Her symptoms continue to progressively worse until 4 days ago when she went to urgent care and was prescribed oral Augmentin for otitis externa. On Friday she noticed that she had purulent ear discharge. She denies fever but reports decreased hearing. She denies history of recurrent ear infection. She came to ED yesterday morning for worsening ear and facial pain and workup in ER revealed acute otitis media with mastoiditis along with facial cellulitis/parotitis. Case was discussed with ENT who recommended IV antibiotics for 48 hours. Patient was started on IV vancomycin and Levaquin. Seen earlier this morning and feels that her pain is better but not completely gone. She has not noticed any ear discharge. She is subjectively feeling better overall compared to her arrival Opioid HPI Opioid Management Most Recent Pain and Opioid Data: Last Pain Scale 5 07/19/24 09:50 07/19/24 Last Pain Assessment 07/19/24 10:59 Last MAR Pain Assessment 07/19/24 05:21 Last ORT Total Score 1 07/18/24 17:32 07/18/24 Last ORT Risk Category Low Risk 07/18/24 17:32 07/18/24 Review of Systems ROS Status of ROS 10 or more systems reviewed and unremarkable except as noted in history and below [facility] Medical History (Updated 07/19/24 @ 11:35 by Shaikh Leslie MD) Obesity ?E66.9 - Obesity, unspecified (ICD-10) Cholelithiasis ?K80.20 - Calculus of gallbladder without cholecystitis without obstruction (ICD-10) Surgical History (Updated 07/18/24 @ 17:50 by Anamaria Blankenship) History of tonsillectomy and adenoidectomy ?Z90.89 - Acquired absence of other organs (ICD-10) H/O tooth extraction ?K08.409 - Partial loss of teeth, unspecified cause, unspecified class (ICD-10) History of endometrial ablation ?Z98.890 - Other specified postprocedural states (ICD-10) Tubal ligation status ?Z98.51 - Tubal ligation status (ICD-10) Hx of cholecystectomy ?Z90.49 - Acquired absence of other specified parts of digestive tract (ICD-10) Social History (Updated 07/19/24 @ 11:32 by Shaikh Leslie MD) Within the past year, how often did you have a drink containing alcohol: never Score interpretation: A score less than 3 is consistent with normal alcohol consumption. Smoking status: Never smoker Non-prescribed substance use: denies use Highest level of school completed/degree received: 11th grade Little interest or pleasure in doing things: not at all Feeling down, depressed, or hopeless: not at all Meds Home Medications and Allergies Home Medications ?Medication ?Instructions ?Recorded ?Confirmed ?Type hydrocodone 5 mg-acetaminophen 325 1 tab PO Q6H PRN pain 3 days #12 11/06/23 Rx mg tablet tabs hyoscyamine sulfate 0.125 mg 0.125 mg PO Q6H PRN abdominal pain 11/06/23 Rx tablet (Levsin) #12 tabs ketorolac 10 mg tablet 10 mg PO TID PRN pain #10 tabs 11/06/23 Rx ondansetron 4 mg disintegrating 4 mg PO Q6H PRN nausea and 11/06/23 Rx tablet vomiting #12 tabs sulfamethoxazole 800 1 tab PO BID 7 days #14 tabs 11/06/23 Rx mg-trimethoprim 160 mg tablet (Bactrim DS) amoxicillin 875 mg-potassium 1 tab PO Q12H 07/18/24 07/18/24 History clavulanate 125 mg tablet ibuprofen 800 mg tablet 800 mg PO Q8H PRN pain 07/18/24 07/18/24 History Allergies Allergy/AdvReac Type Severity Reaction Status Date / Time cefixime (From Suprax) Allergy Severe Verified 09/10/23 13:08 Exam Constitutional Vital Signs, click to edit/add: Last Vital Signs Temp 98.4 F 07/19/24 06:00 Pulse 82 07/19/24 06:00 Resp 18 07/19/24 06:00 BP 103/70 07/19/24 06:00 Pulse Ox 97 07/19/24 11:01 O2 Del Method Room Air 07/19/24 11:01 Documenting provider has reviewed patient's vital signs: yes Common normals: no apparent distress and oriented x3 General appearance: cooperative [facility] Common normals: normocephalic and head/scalp atraumatic Head and scalp: normocephalic and atraumatic Face and sinus: other (Pain on palpation in preauricular area. ) External ear: external ear abnormal Abnormal external ear present: auricular tenderness and mastoids normal External auditory canal: EAC abnormal (Edematous, Macerated, with purulent discharge. ) EAC laterality: left Tympanic membrane: unable to visualize TM Eye Common normals: conjunctivae normal and no scleral icterus Conjunctiva: conjunctiva(e) normal Respiratory Common normals: normal respiratory effort and clear to auscultation bilaterally Effort & inspection: able to speak in complete sentences Auscultation: clear to auscultation bilaterally Cardio Common normals: regular rate, S1 normal heart sound and S2 normal heart sound Rate: regular rate Heart sounds: S1 normal and S2 normal GI Common normals: Normal to inspection, nondistended, normoactive bowel sounds present, soft to palpation, non-tender and no hepatosplenomegaly Palpation: soft and no hepatosplenomegaly Extremity Common normals: no clubbing, cyanosis or edema Neuro Common normals: oriented x3, moves all extremities and no focal motor deficits Psych Common normals: mental status grossly normal, denies hallucinations, denies homicidal ideation and denies suicidal ideation Results Labs Labs: Short CBC 07/18/24 Range/Units 11:22 WBC 10.3 (4.0-11.0) 10^3/uL Hgb 12.1 (12.0-16.0) g/dL Hct 37.0 (36.0-48.0) % Plt Count 288 (150-450) 10^3/uL BMP 07/18/24 11:22 Sodium 142 Potassium 3.8 Chloride 105 Carbon Dioxide 27.1 BUN 8.0 Creatinine 0.89 Glucose 107 H Calcium 9.1 Liver Function 07/18/24 Range/Units 11:22 Total Bilirubin 0.3 (0.2-1.0) mg/dL AST 14 L (15-37) U/L ALT 28 (14-59) U/L Alkaline Phosphatase 60 (46-116) U/L Albumin 3.2 L (3.4-5.0) g/dL Assessment and Plan Assessment and Plan (1) Otitis media: Qualifiers: Otitis media type: suppurative Chronicity: acute Laterality: left Recurrence: non-recurrent Spontaneous tympanic membrane rupture: with spontaneous rupture Qualified Code(s): H66.012 - Acute suppurative otitis media with spontaneous rupture of ear drum, left ear (2) Acute mastoiditis: Qualifiers: Laterality: left Qualified Code(s): H70.002 - Acute mastoiditis without complications, left ear (3) Facial cellulitis: (4) Obesity: Qualifiers: Obesity type: due to excess calories Obesity classification: adult class 3 (BMI >= 40) Serious obesity comorbidity presence: without serious comorbidity Body mass index: BMI 40.0-44.9 Qualified Code(s): E66.813 - Obesity, class 3; E66.01 - Morbid (severe) obesity due to excess calories; Z68.41 - Body mass index [BMI] 40.0-44.9, adult Plan Otitis media, pre auricular cellulitis and mastoiditis on CT scan and clinical exam. Her mastoid tenderness resolved with initial treatment. She still has considerable pain in her left ear and pre auricular region. Seems to be improving clinically. Will c/w IV abx as ENT recommended treatment with IV abx for 48 hours and she still has considerable pain. Monitor closely. Possible discharge if she shows sustained improvement.
[2024-07-19] MEDS: VANCOMYCIN HCL 1,750 MG in 0.9 % SODIUM CHLORIDE 500 ML 150 MG IV (11:37)
[2024-07-19] MEDS: DIPHENHYDRAMINE HCL 25 MG CAPSULE PO (11:37)
--- NOTE | 2024-07-19 11:39 | CM.NOTE ---
Rounds made with Dr. Nelson, no discharge today. Pt will need IV antibotics for 48hours. Pt will discharge in AM on P.O antibiotics.
[2024-07-19 13:22] VITALS: BP 116/74; PULSE 86; TEMP 37.4; O2SAT 98
[2024-07-19] MEDS: CIPROFLOXACIN IN 5 % DEXTROSE 400 MG/200 ML PREMIX 200 MG IV (21:32)
[2024-07-19] MEDS: ACETAMINOPHEN 325 MG TABLET 650 MG PO (21:39)
[2024-07-19 22:00] VITALS: BP 103/59; PULSE 83; TEMP 36.8; O2SAT 96
[2024-07-20] MEDS: DIPHENHYDRAMINE HCL 25 MG CAPSULE PO (00:15)
[2024-07-20] MEDS: KETOROLAC TROMETHAMINE 30 MG/ML VIAL IVP ×2 (00:15→05:48)
[2024-07-20] MEDS: VANCOMYCIN HCL 1,750 MG in 0.9 % SODIUM CHLORIDE 500 ML 200 MG IV (00:15)
[2024-07-20 05:28] VITALS: BP 89/57; PULSE 75; TEMP 36.8; O2SAT 94
[2024-07-20 05:47] VITALS: O2SAT 94
[2024-07-20 05:52] VITALS: BP 114/73
[2024-07-20 07:49] VITALS: BP 119/72; PULSE 85; TEMP 37.1; O2SAT 95
[2024-07-20] MEDS: CIPROFLOXACIN IN 5 % DEXTROSE 400 MG/200 ML PREMIX 200 MG IV (09:02)
[2024-07-20] MEDS: CIPROFLOXACIN HCL/DEXAMETH 0.3%/0.1% OTIC SUSP 150 DROP/7.5 ML BOTTLE OT (09:02)
--- NOTE | 2024-07-20 09:49 | CM.NOTE ---
Rounds made with Dr. Singh, pt will discharge to home on P.O antibiotics. Discussed with pt f/u with PCP and ENT. Pt does not want appointments scheduled at this time, pt does not have insurance until after of the year. Pt given list of accepting PCP and number for Dr. Hobson. Pt verbalizes understanding of importance of f/i appointment.
--- NOTE | 2024-07-20 10:40 | PM.DS1 ---
DS: Providers Provider Date of admission: 07/18/24 16:52 Primary care physician: Non-Staff Physician, DS: Diagnosis Discharge Diagnosis (1) Otitis media: Qualifiers: Chronicity: acute Laterality: left Otitis media type: suppurative Recurrence: non-recurrent Spontaneous tympanic membrane rupture: with spontaneous rupture Qualified Code(s): H66.012 - Acute suppurative otitis media with spontaneous rupture of ear drum, left ear (2) Acute mastoiditis: Qualifiers: Laterality: left Qualified Code(s): H70.002 - Acute mastoiditis without complications, left ear (3) Facial cellulitis: (4) Obesity: Qualifiers: Obesity type: due to excess calories Obesity classification: adult class 3 (BMI >= 40) Serious obesity comorbidity presence: without serious comorbidity Body mass index: BMI 40.0-44.9 Qualified Code(s): E66.813 - Obesity, class 3; E66.01 - Morbid (severe) obesity due to excess calories; Z68.41 - Body mass index [BMI] 40.0-44.9, adult DS: Summary Hospital Course Hospital Course: Reason for admission: See ER note and H&P for details. 34 y/o female to ER with left ear pain. Recently treated for OM and on oral augmentin. Developed worsening pain in ear and radiating to neck. Developed purulent drainage from ear and to ER. CT with changes of otitis media and mastoiditis along with facial cellulitis. ER discussed with ENT who recommended IV antibiotics and ciprodex drops. Admitted for treatment. Hospital course: Started IV vancomycin and cipro. Started ciprodex drops. Improved in hospital. Afebrile. Pain improved and less drainage from ear. Eating well. Discharged home in stable condition. Will take doxy and cipro orally. Continue ciprodex. Resume home medication as directed. Follow up with PCP in 1-2 weeks and will need ENT referral. Time Spent with Patient Time attestation: Total time spent providing and/or coordinating discharge services: Time spent: greater than 30 minutes Exam Constitutional Vital Signs, click to edit/add: Last Vital Signs Temp 98.7 F 07/20/24 07:49 Pulse 85 07/20/24 07:49 Resp 16 07/20/24 07:49 BP 119/72 07/20/24 07:49 Pulse Ox 95 07/20/24 07:49 O2 Del Method Room Air 07/20/24 07:49 Documenting provider has reviewed patient's vital signs: yes Common normals: no apparent distress, oriented x3 and alert HENMT Common normals: normocephalic Eye Common normals: PERRL and EOMs intact bilaterally Respiratory Common normals: normal respiratory effort and clear to auscultation bilaterally Cardio Common normals: regular rate, regular rhythm, no gallops, no murmurs and no rub GI Common normals: Normal to inspection, nondistended, normoactive bowel sounds present and non-tender Extremity Common normals: no pedal edema Discharge Plan Discharge Disposition: Home, Self-Care Discharge Medications: New ciprofloxacin HCl 500 mg tablet 500 mg PO BID 10 Days Qty: 20 0RF ciprofloxacin-dexamethasone 0.3-0.1 % drops,suspension 4 drp otic (ear) BID 7 Days Qty: 7.5 0RF doxycycline hyclate 100 mg capsule 100 mg PO BID 10 Days Qty: 20 0RF Continued hydrocodone-acetaminophen 5-325 mg tablet 1 tab PO Q6H PRN (Reason: pain) 3 Days Qty: 12 0RF Rx Instructions: DX: R10.9 ketorolac 10 mg tablet 10 mg PO TID PRN (Reason: pain) Qty: 10 0RF hyoscyamine sulfate [Levsin] 0.125 mg tablet 0.125 mg PO Q6H PRN (Reason: abdominal pain) Qty: 12 0RF ondansetron 4 mg tablet,disintegrating 4 mg PO Q6H PRN (Reason: nausea and vomiting) Qty: 12 0RF ibuprofen 800 mg tablet 800 mg PO Q8H PRN (Reason: pain) Discontinued sulfamethoxazole-trimethoprim [Bactrim DS] 800-160 mg tablet 1 tab PO BID 7 Days Qty: 14 0RF amoxicillin-pot clavulanate 875-125 mg tablet 1 tab PO Q12H Activity: increase activity as tolerated Diet: advance to your usual diet Print Language: [place] Patient Instructions: Ear Infection (ED), Mastoiditis (DC) Forms: Portal Instructions Follow Up Appointments: Please call a provider to schedule a follow up appt. for 5-7 days following discharge.
[2024-07-20 11:08] VITALS: O2SAT 95
--- OUTSIDE RECORDS SUMMARY | 2024-07-22 07:54 | XMS_ITS | CCD ---
Author Organization [facility] Care Team Providers Care Polisher Brass Name Role Phone GEMMA, RICHELLE Unavailable Unavailable [...] source) Cefixime Drug Allergy 5 Hives, Swelling [facility] (2 sources) Cefixime; Translations: [CEFIXIME] Drug Allergy [...] Facility Surgical Pathologyon 024 Surgical Pathology Normal [facility] Comment on above: Result Comment: [facility] [address] [place] [address] Surgical Pathology Consultation Patient Name:SUN TO:1990 (Age: 33)Gender:FTaken:4Reported:4Physician(s):Edward Han D.O. ([phone])Copy To: Rec. #:[id number]: #[id number] Final Pathologic Diagnosis Gallbladder, cholecystectomy: Chronic cholecystitis and cholelithiasis. Report Electronically Signed Out cjb/4Cdavid Edouard MD Interpretation performed at [facility], [address] [place] [address], License number: [id number]. Clinical History Cholelithiasis, chronic cholecystitis. Gross Description [...] green and velvety with abundant yellow streaking. Mailhouse Operator sections are submitted in a single cassette to include the shaved cystic duct, a counter sales representative section of the gallbladder neck body and fundus. (1,ss,[id number], m6) TB tgb/4AO Specimen(s) Received Gallbladder Fee Codes(s): 1; 17599 [id number] 06-24-2021 SARS-CoV-2 (COVID-19) RNA TINO+probe Ql (Unsp spec) [facility] Comment on above: Result Comment: Rapid [...] this assay. Fact sheet for Healthcare Providers: https://www.fda.gov/media/546972/download Fact sheet for Patients: https://www.fda.gov/media/342487/download Methodology: Isothermal Nucleic Acid Amplification Results reported to the appropriate Health Department Performed By: #### C OVRB #### [facility] [address] [place] [address] [place] [address] Control And Recovery Combat Rescue: Rey Clark MD SURGICALon 03-02-2021 SURGICAL [facility] [id number] Assoc. Page 1 of 1 [address] [place] [address] PROC: 03/02/2021 [facility] RECV: 03/06/[address] RPTD: 03/07/2021 [place] [address] LOC: [facility] ACCT: [id number] SEX: F : 1990 AGE: 30 Y [...] of benign transition zone with squamous metaplasia. [id number] OSMAN DUENAS M.D., F.C.A.P [facility]/ [facility] Printed on: 03/07/2021 [address] [place], [place] [address] Original print date: 03/07/2021 Normal [facility] NOVEL CORONAVIRUS NASOPHARYN GEAL - [facility] SPECIMEN ONLYon 02-27-2021 SARS-CoV-2 (COVID-19) RNA TINO+probe Ql (Unsp spec) Not detected Normal NOT DETECTED [facility] [place] [facility] Comment on above: Order Comment: This test was performed using real time PCR for the qualitative detection of SARS-CoV-2 nucleic acid. The test has been reviewed by the FDA and given emergency use authorization. This test was developed and its performance characteristics determined by The Clinical Microbiology Laboratory at [facility] [place] [facility]. This test is used for clinical purposes. It should not be regarded as investigational or for research. Result Comment: [facility] Negative results do not preclude [...] or clinically deteriorating. Performed By: #### L [id number] #### U [facility] (DEFAULT) [address] [place] [address] CT BRAIN WOon 09-20-2019 CT BRAIN WO [...] electronically signed by: Dr. Dimitry Maldonado Normal [facility] UA w reflex C&Son 02-22-2019 Reflex Culture? URINE CULTURE NOT INDICATED Normal [facility] Comment on above: Performed By: #### U A w reflex C&S #### [facility] [address] [place] [address] Crystals LM Nom (Urine sed) NONE SEEN Normal NONE SEEN [facility] Comment on above: Performed By: #### U A w reflex C&S #### [facility] [address] [place] [address] Bacteria LM.HPF (Urine sed) [#/Area] Negative Normal NEGATIVE [facility] Comment on above: Performed By: #### U A w reflex C&S #### [facility] [address] [place] [address] Mucus Ql (Urine sed) Negative Normal NEGATIVE [facility] Comment on above: Performed By: #### U A w reflex C&S #### [facility] [address] [place] [address] Casts LM.LPF (Urine sed) [#/Area] NONE SEEN Normal NONE SEEN [facility] Comment on above: Performed By: #### U A w reflex C&S #### [facility] [address] [place] [address] Epithelial cells LM.HPF (Urine sed) [#/Area] FEW Normal NEGATIVE [facility] Comment on above: Performed By: #### U A w reflex C&S #### [facility] [address] [place] [address] RBC (Bld) [#/Vol] NONE SEEN Normal NONE SEEN [facility] Comment on above: Performed By: #### U A w reflex C&S #### [facility] [address] [place] [address] WBC (Bld) [#/Vol] NONE SEEN Normal NONE SEEN [facility] Comment on above: Performed By: #### U A w reflex C&S #### [facility] [address] [place] [address] Leukocyte esterase Test strip Ql (U) Negative Normal NEGATIVE [facility] Comment on above: Performed By: #### U A w reflex C&S #### [facility] [address] [place] [address] Nitrite Ql (U) Negative Normal NEGATIVE [facility] Comment on above: Performed By: #### U A w reflex C&S #### [facility] [address] [place] [address] Urobilinogen, Dipstick 0.2 Normal 0.2 - 1.0 [facility] Comment on above: Performed By: #### U A w reflex C&S #### [facility] [address] [place] [address] Protein, Qual Negative Normal NEGATIVE [facility] Comment on above: Performed By: #### U A w reflex C&S #### [facility] [address] [place] [address] pH (U) 6.5 [pH] Normal 5.0 - 9.0 [facility] Comment on above: Performed By: #### U A w reflex C&S #### [address] [address] Blood, Dipstick Negative Normal NEGATIVE [facility] Comment on above: Performed By: #### U A w reflex C&S #### [address] [address] Specific gravity (U) [Rel density] 1.010 Normal 1.005 - 1.030 [facility] Comment on above: Performed By: #### U A w reflex C&S #### [address] [address] Ketone, Dipstick Negative Normal NEGATIVE [facility] Comment on above: Performed By: #### U A w reflex C&S #### [address] [address] Bilirubin, Dipstick Negative Normal NEGATIVE [facility] Comment on above: Performed By: #### U A w reflex C&S #### [address] [address] Glucose, Dipstick Negative Normal NEGATIVE [facility] Comment on above: Performed By: #### U A w reflex C&S #### [address] [address] Character (U) CLEAR Normal CLEAR [facility] Comment on above: Performed By: #### U A w reflex C&S #### [address] [place] [address] Color (U) YELLOW Normal [facility] Comment on above: Performed By: #### U A w reflex C&S #### [facility] [address] [place] [address] Age at specimen collection = Normal [facility] Comment on above: Performed By: #### U A w reflex C&S #### [facility] [address] [place] [address] XR ABD AP/ERECT W PA CHESTon 02-22-2019 [...] electronically signed by: Dr. Rey Barton Normal [facility] CBC W Auto Differentialon Abs Neut # 8.0 10 X 3/mm High 1.8 - 7.7 [facility] Comment on above: Performed By: #### C BC Auto Diff #### [facility] [address] [place] [address] Basophils/100 WBC (Bld) 0 % Normal 0 - 1 [facility] Comment on above: Performed By: #### C BC Auto Diff #### [facility] [address] [place] [address] Eosinophils (Bld) [#/Vol] 0.3 10 X 3/mm Normal 0.0 - 0.5 [facility] Comment on above: Performed By: #### C BC Auto Diff #### [facility] [address] [place] [address] Eosinophils/100 WBC (Bld) 3 % Normal 0 - 5 [facility] Comment on above: Performed By: #### C BC Auto Diff #### [address] [place] [address] Erythrocyte distribution width (RBC) [Ratio] 14.3 % Normal 11.5 - 14.5 [facility] Comment on above: Performed By: #### C BC Auto Diff #### [address] [place] [address] Hematocrit (Bld) [Volume fraction] 34.6 % Low 36.0 - 47.0 [facility] Comment on above: Performed By: #### C BC Auto Diff #### [address] [address] Hemoglobin (Bld) [Mass/Vol] 11.2 g/dL Low 12.0 - 16.0 [facility] Comment on above: Performed By: #### C BC Auto Diff #### [address] [place] [address] Lymphocytes (Bld) [#/Vol] 3.6 10 X 3/mm Normal 1.0 - 4.0 [facility] Comment on above: Performed By: #### C BC Auto Diff #### [address] [place] [address] Lymphocytes/100 WBC (Bld) 29 % Normal 20 - 40 [facility] Comment on above: Performed By: #### C BC Auto Diff #### [address] [place] [address] MCH (RBC) [Entitic mass] 28.1 pg Normal 27.0 - 35.0 [facility] Comment on above: Performed By: #### C BC Auto Diff #### [address] [place] [address] MCHC (RBC) [Mass/Vol] 32.4 g/dL Normal 32.0 - 36.0 [facility] Comment on above: Performed By: #### C BC Auto Diff #### [address] [address] MCV (RBC) [Entitic vol] 86.6 fL Normal 80.0 - 100.0 [facility] Comment on above: Performed By: #### C BC Auto Diff #### [address] [address] Monocytes/100 WBC (Bld) 5 % Normal 1 - 15 [facility] Comment on above: Performed By: #### C BC Auto Diff #### [address] [address] Neutrophils/100 WBC (Bld) 63 % Normal 50 - 70 [facility] Comment on above: Performed By: #### C BC Auto Diff #### [address] [address] Platelet mean volume (Bld) [Entitic vol] 7.6 fL Normal 7.5 - 11.5 [facility] Comment on above: Performed By: #### C BC Auto Diff #### [address] [address] Platelets (Bld) [#/Vol] 358 uLx10 Normal 150 - 450 [facility] Comment on above: Performed By: #### C BC Auto Diff #### [address] [address] RBC (Bld) [#/Vol] 4.00 10 X 6/mm Low 4.20 - 5.40 [facility] Comment on above: Performed By: #### C BC Auto Diff #### [address] [place] [address] WBC (Bld) [#/Vol] 12.6 10 X 3/mm High 3.7 - 11.0 [facility] Comment on above: Performed By: #### C BC Auto Diff #### [address] [place], [place] [address] SURGICALon 02-17-2019 SURGICAL [facility] Pathology [id number] Assoc. Page 1 of 1 [address] [place] [address] PROC: 02/17/2019 [facility] RECV: 02/18/[address] RPTD: 02/19/2019 [place] [address] LOC: [facility] ACCT: SEX: F [id number] AGE: 28 Y : 1990 PATHOLOGY REPORT [...] specimen is for gross description only. [id number]/[id number] DAWSON JESUS M.D., F.C.A.P. [facility]/ [facility] Printed on: 02/19/[address] [place] [address] Original print date: 02/19/2019 [facility] hCG, Qualitative-Serumon Age at specimen collection = Normal [facility] Comment on above: Performed By: #### H CG,QUAL SERUM #### [address] [place] [address] Performed By: #### C BC Auto Diff #### [address] [place] [address] hCG, Qualitative-Serum Negative Normal NEGATIVE [facility] Comment on above: Performed By: #### H CG,QUAL SERUM #### [facility] [address] [place] [address] Internal Control ACCEPTABLE Normal [facility] Comment on above: Performed By: #### H CG,QUAL SERUM #### [facility] [address] [place] [address] Streptococcus Group A Cultur e-Pharyngeal Swabon 02-13-2019 Streptococcus Group A Culture-Pharyngeal Swab Negative Normal NEGATIVE [facility] Comment on above: Result Comment: A po sitive result indicates the specimen is presumptively positive for Group A Beta Strep by bacitracin method. Performed By: #### S TRP SCR, GRP A #### [address] [place] [address] Group A Strepon 02-11-2019 Internal Control ACCEPTABLE Normal [facility] Comment on above: Performed By: #### R APID STREP SCR #### [address] [address] S. pyogenes Ag IA Ql (Unsp spec) Negative Normal NEGATIVE [facility] Comment on above: Performed By: #### R APID STREP SCR #### [address] [address] XR CHEST P/L (2 view)on 01-25 XR [...] electronically signed by: Dr. Deion Sigala Normal [facility] Streptococcus Group A Cultur e-Pharyngeal Swabon 02-10-2019 Age at specimen collection = Normal [facility] Comment on above: Performed By: #### S TRP SCR, GRP A #### [facility] [address] [place] [address] Performed By: #### R APID STREP SCR #### [facility] [address] [place] [address] RAPID FLUon 11-01-2018 Flu B Negative Normal NEGATIVE [facility] Comment on above: Result Comment: A po sitive result indicates the presence of Influenza A/B antigen. A negative result should be interpreted as presumptively negative for the presence of Influenza A/B antigen. Performed By: #### F IRIS A/B MOLECUL #### [facility] [address] [place] [address] Internal Control ACCEPTABLE Normal [facility] Comment on above: Performed By: #### F IRIS A/B MOLECUL #### [facility] [address] [place] [address] Flu A Negative Normal NEGATIVE [facility] Comment on above: Performed By: #### F IRIS A/B MOLECUL #### [facility] [address] [place] [address] Age at specimen collection = Normal [facility] Comment on above: Performed By: #### F IRIS A/B MOLECUL #### [address] [place] [address] Vital Signs Date Time Vital Sign Value Performing Clinician Russ quiroz 11-11-2020 21:27-0400 Diastolic blood pressure 67 mm[Hg] Chuckie Alvarenga MD Work Phone: [employer] Phone: 11-11-2020 21:27-0400 Heart rate 91 /min Chuckie Alvarenga MD Work Phone: [employer] Work Phone: 11-11-2020 21:27-0400 Respiratory rate 16 /min Chuckie Alvarenga MD Work Phone: [employer] Work Phone: 11-11-2020 21:27-0400 SaO2% (BldA) [Mass fraction] 98 % Chuckie Alvarenga MD Work Phone: [employer] Work Phone: 11-11-2020 21:27-0400 Systolic blood pressure 129 mm[Hg] Chuckie Alvarenga MD Work Phone: [employer] Work Phone: 11-11-2020 20:38-0400 Body mass index (BMI) [Ratio] 38.11 kg/m2 Chuckie Alvarenga MD Work Phone: [employer] Work Phone: 11-11-2020 20:38-0400 Body temperature 99.39 [degF] Chuckie Alvarenga MD Work Phone: [employer] Work Phone: 11-11-2020 20:38-0400 Body weight 103.87 kg Chuckie Alvarenga MD Work Phone: [employer] Work Phone: Encounters Encounter Date Encounter Type Care Provider Facility Start: 12-16-2023 End: 12-16-2023 ambulatory NATALIO BARRERA [facility] Start: 12-02-2023 End: 12-02-2023 Evaluation and management of inpatient CANDI ROSS [facility] Start: 12-02-2023 End: 12-02-2023 Evaluation and management of inpatient EDWARD YOCASTAJEFFERYMarco A [facility] Start: 11-27-2023 End: 11-27-2023 ambulatory [facility] Start: 11-19-2023 End: 11-19-2023 ambulatory TABERG Mike [facility] Start: 08-07-2021 End: 08-07-2021 Emergency department patient [facility] Start: 06-24-2021 End: 06-24-2021 Emergency department patient visit FRANCOIS Vaz [facility] Start: 11-11-2020 End: 11-11-2020 Emergency department patient visit CHUCKIE ALVARENGA [facility] Start: 11-11-2020 End: 11-11-2020 Emergency department patient visit Chuckie Alvarenga MD Work Phone: [facility] ED Comment on above: Cellulitis and absce ss of leg (Primary Dx); Cellulitis, abdominal wall Start: 11-25-2018 End: 11-26-2018 Patient encounter procedure DEFAULT PHYSICIAN Facility:[facility] Start: 02-11-2017 End: 02-12-2017 Ambulatory [facility] Plan of Treatment Date Care Activity Detail Author Start: 03-15-2026 DTaP/Tdap/Td vaccine (2 - Td) DTaP/Tdap/Td vaccine (2 - Td) [employer] Phone: Start: 03-28-2021 Influenza vaccination Flu vacc ine (Season Ended) [employer] Phone: Start: 2013 Screening for malign ant neoplasm of cervix Cervical cancer screen [employer] Phone: Start: 2008 COVID-19 Vaccine (1) COVID-19 Vaccin e (1) [employer] Phone: Start: 2007 HIV screening HIV screen [facility] Work Phone: Start: 1998 Pneumococcal 0-64 ye ars Vaccine (1 of 1 - PPSV23) Pneumococcal 0-64 years Vaccine (1 of 1 - PPSV23) [employer] Phone: Start: 1993 Varicella vaccine (1 of 2 - 2-dose childhood series) Varicella vaccine (1 of 2 - 2-dose childhood series) [employer] Work Phone: Start: 1992 Hepatitis C screening Hepatitis C sc lindseyn [employer] Work Phone: Immunizations Immunization Date Immunization Notes Care Provider Fa rita 03-15-2016 tetanus toxoid, redu rodri diphtheria toxoid, and acellular pertussis vaccine, adsorbed Chuckie Jordan CALDERON Work Phone: [employer] Phone: Payers Date Payer Category Payer Unknown [id number] 1990 Unknown [id number] 2.16.8 [id number] 1990 Unknown [id number] 2.16.8 [id number] 1990 Unknown [id number] 2.16.8 [id number] 1990 Unknown [id number] 2.16.8 [id number] 1990 Unknown [id number] 2.16.8 [id number] 1990 Unknown [id number] 2.16.8 [id number] Medicaid [id number] Unknown Social History Date Type Detail Facility Start: 11-11-2020 Tobacco smoking stat [facility] Current every day smoker [employer] Work Phone: History of tobacco use Cigarette Smoker [employer] Start: 11-11-2020 Cigarettes smoked current (pack per day) - Reported [employer] Phone: Start: 11-11-2020 Tobacco use and exposure Never used [employer] Start: 11-11-2020 Alcohol intake Current non-dr beer maker of alcohol (finding) [employer] Phone: Start: 11-03-2018 Tobacco Comment declined [employer] Phone: Start: 06-14-2015 Alcohol Comment occ [employer] Phone: Sex Assigned At Not on file [employer] Phone: Exposure to SARS-CoV -2 (event) Not sure [facility] Discharge instructions 11-11-2020 InstructionsAttachments Note [...] attachments cannot be sent through Care Everywhere.Cellulitis (Macedonian)Abscess: Skin (Macedonian)documented in this encounter [employer] Phone: Evaluation note Note Date & Type Note Facility Evaluation note Diagnosis Cellulitis and abscess of leg- Primary Cellulitis and abscess of leg, except foot Cellulitis, abdominal wall Cellulitis and abscess of trunk documented in this encounter [employer] Phone: Summary Purpose Family History No Family History Records FoundNo Family History Records FoundNo Family History Records FoundNo Family History Records FoundNo Family History Records FoundNo Family History Records FoundNo Family History Records FoundNo Family History Records FoundNo Family History Records Found Advance Directives No Advanced Directives Records FoundDocuments on File Type Date Recorded 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 ACP-Advance Directive ACP-Power of Buyer Planner Latest Code Status on File Code Status Date Activated Date Inactivated Comments Full Code 11/18/2018 4:11 AM 11/18/2018 7:55 AM Full Code 03/13/2016 11:53 PM 03/15/2016 4:20 PM Full Code 03/13/2016 9:44 AM 03/13/2016 11:53 PM Additional Source Comments INFORMATION SOURCE (unrecogn ized section and content) DATE CREATED AUTHOR 01/20/2018 [facility] DATE CREATED AUTHOR AUTHOR'S ORGANIZ ATION 12/02/2018 [facility] DATE CREATED AUTHOR AUTHOR'S ORGANIZ ATION 02/19/2019 [facility] DATE CREATED AUTHOR AUTHOR'S ORGANIZ ATION 10/08/2019 [facility] DATE CREATED AUTHOR AUTHOR'S ORGANIZ ATION 03/02/2021 [facility] DATE CREATED AUTHOR AUTHOR'S ORGANIZ ATION 03/08/2021 [facility] DATE CREATED AUTHOR AUTHOR'S ORGANIZ ATION 08/08/2021 Doris Rangel [facility] DATE CREATED AUTHOR AUTHOR'S ORGANIZ ATION 12/11/2023 [facility] DATE CREATED AUTHOR AUTHOR'S ORGANIZ ATION 12/19/2023 [...] BE BASED ON THE PRIMARY CLINICAL RECORDS. [employer] [facility]. provides no warranty or guarantee of the accuracy or completeness of information in this document.
--- NOTE | 2024-07-22 12:51 | CM.DCFOLLOWU ---
1st attempt 07/22/24, no answer
--- NOTE | 2024-07-23 11:51 | CM.DCFOLLOWU ---
2nd attempt 07/23/24, no answer
--- NOTE | 2024-07-27 13:37 | CM.DCFOLLOWU ---
3rd attempt 07/27/24, no answer
== END 2024-07-20 11:00 | disposition home or self-care (01) ==
LOC: ER 16:15 → MS 07-20 09:50
PROVIDERS: Admitting Provider Family Medicine; Emergency Provider Emergency Medicine; Visit Provider Family Medicine
DX: H66.012 Acute suppurative otitis media with spontaneous rupture of ear drum, left ear (principal); H70.002 Acute mastoiditis without complications, left ear; E66.813 Obesity, class 3; Z68.41 Body mass index [BMI] 40.0-44.9, adult; L03.211 Cellulitis of face; Z88.1 Allergy status to other antibiotic agents; K11.20 Sialoadenitis, unspecified
CPT/HCPCS: 36415; 70481; 80053; 84703; 85025; 94761; 96365; 96366; 96367; 96372; 96375; 96376; 99285; 99406; G0378; J0744; J1650; J1885; J2270; J3370; Q9967